=== PATIENT | male | born 1955 | race Caucasian/White ===

== ENCOUNTER 2019-02-08 08:33 | Emergency (ER) | payer BC ==
[~2019-02-08] VITALS: Ht 182.9 cm; Wt 94.4 kg
[2019-02-08 08:34] VITALS: BP 165/95
[2019-02-08] MEDS ORDERED: predniSONE 20 MG TAB PO ONE (09:30)
[2019-02-08] MEDS ORDERED: PRED20TA PO (09:30)
[2019-02-08] MEDS ORDERED: GABA-843 PO (09:30)
== END 2019-02-08 09:48 | disposition home or self-care (01) ==
LOC: M ED 08:33
DX: M54.41 Lumbago with sciatica, right side (principal); G89.29 Other chronic pain; I10 Essential (primary) hypertension; F41.9 Anxiety disorder, unspecified

== ENCOUNTER → 2019-03-07 | Outpatient (REF) | payer BC, OTHER ==
[~2019-03-07] MED LIST: GABA-843 PO; PRED20TA PO
[2019-03-07 16:52] LABS: ALBUMIN 4.5 GM/DL (3.2-5.2); ALT/SGPT 61 U/L (12-78); BLOOD UREA NITROGEN 18 MG/DL (7-18); CALCIUM LEVEL 9.2 MG/DL (8.8-10.2); CARBON DIOXIDE LEVEL 27 MEQ/L (21-32); CHLORIDE LEVEL 98 MEQ/L (98-107); CHOLESTEROL LEVEL 226 MG/DL (<200); CHOLESTEROL RISK RATIO 4.264 (<5); FERRITIN 346 NG/ML (26-388); GLOMERULAR FILTRATION RATE 59.4 (>49); GLUCOSE, FASTING 93 MG/DL (70-100); HDL CHOLESTEROL 53 MG/DL (>40); IRON (FE) 232 UG/DL (65-175); NON-HDL-C 173 MG/DL; PERCENT SATURATION 69.5 % (19.7-50.0); POTASSIUM SERUM 4.5 MEQ/L (3.5-5.1); RHEUMATOID FACTOR QUANT < 10.0 IU/ML (<15.0); SODIUM LEVEL 134 MEQ/L (136-145); THYROID STIMULATING HORMONE 0.932 uIU/ML (0.358-3.740); TOTAL IRON BINDING CAPACITY 334 UG/DL (250-450); TRIGLYCERIDES LEVEL 642 MG/DL (<150)
[2019-03-07 17:18] LABS: TOTAL 25(OH) VITAMIN D 28.4 NG/ML (30.0-100.0)
[2019-03-07 17:20] LABS: FOLATE > 24.0 NG/ML (>5.4)
[2019-03-07 17:23] LABS: HEMOGLOBIN 15.2 g/dl (13.5-17.5); MEAN CORPUSCULAR HEMOGLOBIN 34.8 pg (27.0-33.0); MEAN CORPUSCULAR HGB CONC 36.2 g/dl (32.0-36.5); MEAN CORPUSCULAR VOLUME 96.1 fl (80.0-96.0); PLATELET COUNT, AUTOMATED 149 10^3/uL (150-450); RED BLOOD COUNT 4.37 10^6/uL (4.30-6.10); WHITE BLOOD COUNT 5.9 10^3/uL (4.0-10.0)
[2019-03-07 17:29] LABS: HEPATITIS B SURFACE ANTIGEN NEGATIVE (NEGATIVE)
[2019-03-07 18:49] LABS: ERYTHROCYTE SEDIMENTATION RATE 9 mm/hr (0-20)
[2019-03-09 09:37] LABS: HEPATITIS A ANTIBODY IGM QNS (NEGATIVE); HEPATITIS B CORE ANTIBODY IGM QNS (NEGATIVE)
[2019-03-09 09:39] LABS: HEPATITIS C VIRUS ABY INDEX QNS INDEX (<0.8)
[2019-03-10 00:06] LABS: ANA (HEP2) Negative (.); Lyme Disease IgG/IgM Antibodie <0.91 ISR (0.00-0.90); Lyme Disease IgM Ab Quantitati <0.80 index (0.00-0.79)
== END ==
LOC: M SFHCCLAY 11:51
PROVIDERS: ATTEND Nurse Practitioner Family
DX: K21.9 Gastro-esophageal reflux disease without esophagitis (principal); I10 Essential (primary) hypertension; M19.90 Unspecified osteoarthritis, unspecified site; K74.60 Unspecified cirrhosis of liver; F41.9 Anxiety disorder, unspecified

== ENCOUNTER → 2019-05-01 | Outpatient (CLI) | payer BC ==
--- NOTE | 2019-05-01 09:25 | REP ---
RIGHT UPPER QUADRANT ULTRASOUND: Real-time sonographic evaluation of the right upper quadrant performed. Mobile gallstones are seen in the gallbladder. There is no gallbladder wall thickening or pericholecystic fluid. There is no intrahepatic or extrahepatic biliary dilatation, common bile duct measuring 4 mm. The liver demonstrates diffuse heterogeneous increased echotexture compatible with diffuse fibrofatty infiltration. The liver appears somewhat enlarged, with a length of approximately 18.2 cm. No gross liver or pancreatic mass is seen. Right kidney demonstrates no hydronephrosis, normal size 10.1 cm in length. IMPRESSION: Mobile gallstones in the gallbladder without gallbladder wall thickening, free fluid or biliary dilatation. Mild hepatomegaly with diffuse fibrofatty infiltration and no gross mass. Electronically Signed by Aiden Quiroga MD 05/02/2019 10:26 A
== END ==
LOC: M RAD 06:35
PROVIDERS: ATTEND Internal Medicine Gastroenterology
DX: K74.60 Unspecified cirrhosis of liver (principal); K80.20 Calculus of gallbladder without cholecystitis without obstruction

== ENCOUNTER → 2019-05-09 | Outpatient (REF) | payer BC ==
[2019-05-09 16:14] LABS: HEMATOCRIT 46.9 % (42.0-52.0); HEMOGLOBIN 15.7 g/dl (13.5-17.5); MEAN CORPUSCULAR HEMOGLOBIN 35.1 pg (27.0-33.0); MEAN CORPUSCULAR HGB CONC 33.5 g/dl (32.0-36.5); MEAN CORPUSCULAR VOLUME 104.9 fl (80.0-96.0); PLATELET COUNT, AUTOMATED 157 10^3/uL (150-450); RED BLOOD COUNT 4.47 10^6/uL (4.30-6.10); WHITE BLOOD COUNT 4.5 10^3/uL (4.0-10.0)
[2019-05-09 16:23] LABS: ALBUMIN 3.5 GM/DL (3.2-5.2); ALT/SGPT 88 U/L (12-78); BILIRUBIN,DIRECT 0.3 MG/DL (0.0-0.2); BILIRUBIN,TOTAL 1.3 MG/DL (0.2-1.0); CHOLESTEROL LEVEL 273 MG/DL (<200); CHOLESTEROL RISK RATIO 11.375 (<5); HDL CHOLESTEROL 24 MG/DL (>40); IRON (FE) 241 UG/DL (65-175); NON-HDL-C 249 MG/DL; PERCENT SATURATION 100.8 % (19.7-50.0); TOTAL IRON BINDING CAPACITY 239 UG/DL (250-450); TOTAL PROTEIN 7.4 GM/DL (6.4-8.2); TRIGLYCERIDES LEVEL 1753 MG/DL (<150)
== END ==
LOC: M SFHCCLAY 10:26
PROVIDERS: ATTEND Nurse Practitioner Family
DX: K74.60 Unspecified cirrhosis of liver (principal); E78.5 Hyperlipidemia, unspecified

== ENCOUNTER → 2019-05-16 | Outpatient (CLI) | payer OTHER ==
--- NOTE | 2019-05-16 15:12 | REP ---
Two-view chest: 05/16/2019. Indication: Dyspnea. Comparison: None. Findings: The hyperinflated lungs are clear. There is no pleural effusion or pneumothorax. The cardiomediastinal silhouette is unremarkable. Impression: No acute cardiopulmonary process. Electronically Signed by Jozef Booker DO 05/16/2019 03:03 P
== END ==
LOC: M CLY 14:47
PROVIDERS: ATTEND Nurse Practitioner Family
DX: R06.02 Shortness of breath (principal)

== ENCOUNTER → 2019-06-22 | Outpatient (REF) | payer OTHER ==
[~2019-06-22] MED LIST changes: +AMIT25TA PO; +DICL50TAB PO; +ESCI20TA PO; +HYDR25TAB PO; +LATA0.0015; +PANT40TA3 PO
[2019-06-22 12:36] LABS: HEMOGLOBIN 13.2 g/dl (13.5-17.5); MEAN CORPUSCULAR HGB CONC 33.8 g/dl (32.0-36.5); MEAN CORPUSCULAR VOLUME 103.4 fl (80.0-96.0); RED BLOOD COUNT 3.77 10^6/uL (4.30-6.10); WHITE BLOOD COUNT 3.4 10^3/uL (4.0-10.0)
[2019-06-22 12:56] LABS: PLATELET COUNT, AUTOMATED 99 10^3/uL (150-450)
[2019-06-22 13:04] LABS: ALT/SGPT 31 U/L (12-78); BILIRUBIN,DIRECT 0.1 MG/DL (0.0-0.2); BILIRUBIN,TOTAL 0.4 MG/DL (0.2-1.0); CHOLESTEROL LEVEL 270 MG/DL (<200); CHOLESTEROL RISK RATIO 5.744 (<5); FREE THYROXINE INDEX 1.8 % (1.4-3.8); HDL CHOLESTEROL 47 MG/DL (>40); IRON (FE) 65 UG/DL (65-175); NON-HDL-C 223 MG/DL; PERCENT SATURATION 20.1 % (19.7-50.0); T UPTAKE 33 % (33-40); THYROXINE (T4) 5.6 UG/DL (4.5-12.0); TOTAL IRON BINDING CAPACITY 323 UG/DL (250-450); TOTAL PROTEIN 7.4 GM/DL (6.4-8.2); TRIGLYCERIDES LEVEL 781 MG/DL (<150)
== END ==
LOC: M SFHCCLAY 08:27
PROVIDERS: ATTEND Nurse Practitioner Family
DX: K74.60 Unspecified cirrhosis of liver (principal); E78.5 Hyperlipidemia, unspecified; R53.83 Other fatigue

== ENCOUNTER → 2019-07-23 | Outpatient (REF) | payer OTHER, SELFPAY ==
[2019-07-23 16:36] LABS: HEMATOCRIT 42.2 % (42.0-52.0); HEMOGLOBIN 14.1 g/dl (13.5-17.5); MEAN CORPUSCULAR HEMOGLOBIN 34.1 pg (27.0-33.0); MEAN CORPUSCULAR HGB CONC 33.4 g/dl (32.0-36.5); MEAN CORPUSCULAR VOLUME 102.2 fl (80.0-96.0); PLATELET COUNT, AUTOMATED 109 10^3/uL (150-450); RED BLOOD COUNT 4.13 10^6/uL (4.30-6.10); WHITE BLOOD COUNT 3.4 10^3/uL (4.0-10.0)
== END ==
LOC: M SFHCCLAY 09:50
PROVIDERS: ATTEND Nurse Practitioner Family
DX: D64.9 Anemia, unspecified (principal)

== ENCOUNTER → 2019-10-08 | Outpatient (REF) | payer MEDICARE ==
[2019-10-08 11:38] LABS: BASO % 0.7 % (0.0-1.0); EOS # 0.1 10^3/uL (0.0-0.5); EOS % 4.2 % (0.0-3.0); HEMATOCRIT 39.7 % (42.0-52.0); HEMOGLOBIN 14.1 g/dl (13.5-17.5); LYMPH # 1.1 10^3/uL (1.5-5.0); LYMPH % 39.8 % (24.0-44.0); MEAN CORPUSCULAR HEMOGLOBIN 34.1 pg (27.0-33.0); MEAN CORPUSCULAR HGB CONC 35.5 g/dl (32.0-36.5); MEAN CORPUSCULAR VOLUME 95.9 fl (80.0-96.0); MONO # 0.2 10^3/uL (0.0-0.8); MONO % 8.5 % (0.0-5.0); NEUTROPHILS # 1.3 10^3/uL (1.5-8.5); NEUTROPHILS % 46.4 % (36.0-66.0); RED BLOOD COUNT 4.14 10^6/uL (4.30-6.10); WHITE BLOOD COUNT 2.8 10^3/uL (4.0-10.0)
[2019-10-08 11:39] LABS: PLATELET COUNT, AUTOMATED 90 10^3/uL (150-450)
[2019-10-08 12:09] LABS: ALBUMIN 4.1 GM/DL (3.2-5.2); ALT/SGPT 61 U/L (12-78); BILIRUBIN,TOTAL 0.7 MG/DL (0.2-1.0); BLOOD UREA NITROGEN 25 MG/DL (7-18); CALCIUM LEVEL 9.3 MG/DL (8.8-10.2); CARBON DIOXIDE LEVEL 27 MEQ/L (21-32); CHLORIDE LEVEL 99 MEQ/L (98-107); CHOLESTEROL LEVEL 248 MG/DL (<200); CHOLESTEROL RISK RATIO 7.085 (<5); CREATININE FOR GFR 1.64 MG/DL (0.70-1.30); GLOMERULAR FILTRATION RATE 45.3 (>49); GLUCOSE, FASTING 104 MG/DL (70-100); HDL CHOLESTEROL 35 MG/DL (>40); NON-HDL-C 213 MG/DL; POTASSIUM SERUM 4.7 MEQ/L (3.5-5.1); SODIUM LEVEL 133 MEQ/L (136-145); TOTAL 25(OH) VITAMIN D 14.6 NG/ML (30.0-100.0); TOTAL PROTEIN 7.8 GM/DL (6.4-8.2); TRIGLYCERIDES LEVEL 1795 MG/DL (<150)
== END ==
LOC: M SFHCCLAY 08:31
PROVIDERS: ATTEND Nurse Practitioner Family
DX: F10.20 Alcohol dependence, uncomplicated (principal); I10 Essential (primary) hypertension; E78.5 Hyperlipidemia, unspecified; E55.9 Vitamin D deficiency, unspecified

== ENCOUNTER → 2019-10-23 | Outpatient (REF) | payer MEDICARE ==
[~2019-10-23] MED LIST changes: +AMIT75TA PO; +FENO67CA2 PO; +LOSA100T50 PO; +TRIA1CR80; +VITA50005 PO
== END ==
LOC: M LAB REF 08:16
PROVIDERS: ATTEND Dermatology
DX: L57.0 Actinic keratosis (principal)

== ENCOUNTER → 2019-12-18 | Outpatient (REF) | payer MEDICARE ==
[~2019-12-18] MED LIST changes: +AMLO1TAB24 PO; +NEUR300C PO; +PANT40TA29 PO; -PANT40TA3 PO; +TRAM50TA2 PO; +XALA0.007 OU
[2019-12-18 16:56] LABS: HEMATOCRIT 38.3 % (42.0-52.0); HEMOGLOBIN 13.1 g/dl (13.5-17.5); MEAN CORPUSCULAR HEMOGLOBIN 34.4 pg (27.0-33.0); MEAN CORPUSCULAR HGB CONC 34.2 g/dl (32.0-36.5); MEAN CORPUSCULAR VOLUME 100.5 fl (80.0-96.0); RED BLOOD COUNT 3.81 10^6/uL (4.30-6.10)
[2019-12-18 17:14] LABS: ALBUMIN 4.1 GM/DL (3.2-5.2); ALT/SGPT 57 U/L (12-78); BILIRUBIN,DIRECT 0.2 MG/DL (0.0-0.2); BILIRUBIN,TOTAL 0.6 MG/DL (0.2-1.0); CHOLESTEROL LEVEL 286 MG/DL (<200); HDL CHOLESTEROL 44 MG/DL (>40); NON-HDL-C 242 MG/DL; TOTAL 25(OH) VITAMIN D 15.6 NG/ML (30.0-100.0); TOTAL PROTEIN 7.9 GM/DL (6.4-8.2); TRIGLYCERIDES LEVEL 1335 MG/DL (<150)
[2019-12-18 17:43] LABS: PLATELET COUNT, AUTOMATED 75 10^3/uL (150-450)
== END ==
LOC: M SFHCCLAY 10:46
PROVIDERS: ATTEND Nurse Practitioner Family
DX: R79.89 Other specified abnormal findings of blood chemistry (principal); E78.5 Hyperlipidemia, unspecified; E55.9 Vitamin D deficiency, unspecified

== ENCOUNTER 2020-03-03 11:01 | Inpatient (IN) | payer MEDICARE ==
[~2020-03-03] VITALS: Ht 182.9 cm; Wt 101.5 kg
[~2020-03-03 11:01] MED LIST changes: -AMLO1TAB24 PO; -NEUR300C PO; -TRAM50TA2 PO; -XALA0.007 OU
[2020-03-03 11:34] LABS: BASO % 0.2 % (0.0-1.0); EOS # 0.1 10^3/uL (0.0-0.5); HEMOGLOBIN 13.1 g/dl (13.5-17.5); LYMPH # 0.2 10^3/uL (1.5-5.0); LYMPH % 3.3 % (24.0-44.0); MEAN CORPUSCULAR HEMOGLOBIN 34.5 pg (27.0-33.0); MEAN CORPUSCULAR HGB CONC 35.4 g/dl (32.0-36.5); MEAN CORPUSCULAR VOLUME 97.4 fl (80.0-96.0); MONO # 0.3 10^3/uL (0.0-0.8); MONO % 5.3 % (0.0-5.0); NEUTROPHILS # 4.6 10^3/uL (1.5-8.5); NEUTROPHILS % 88.6 % (36.0-66.0); WHITE BLOOD COUNT 5.1 10^3/uL (4.0-10.0)
[2020-03-03 11:37] LABS: PLATELET COUNT, AUTOMATED 71 10^3/uL (150-450)
[2020-03-03] MEDS ORDERED: NEUR300C PO (11:39)
[2020-03-03] MEDS ORDERED: NS 1,000 ML IV ONE ×2 (11:45→12:30)
--- NOTE | 2020-03-03 11:48 | REPVR ---
PROCEDURE INFORMATION: Exam: CT Head Without Contrast Exam date and time: 03/03/2020 11:31 AM Age: 64 years old Clinical indication: Syncope and collapse and other: Hypotensive; Additional info: Drug overdose TECHNIQUE: Imaging protocol: Computed tomography of the head without contrast. Radiation optimization: All CT scans at this facility use at least one of these dose optimization techniques: automated exposure control; mA and/or kV adjustment per patient size (includes targeted exams where dose is matched to clinical indication); or iterative reconstruction. COMPARISON: No relevant prior studies available. FINDINGS: Brain: No acute intracranial hemorrhage, cerebral edema, or midline shift. Mild cerebral and cerebellar volume loss is present. Ventricles: No hydrocephalus. Bones/joints: No acute fracture. Paranasal sinuses: Visualized sinuses are unremarkable. No fluid levels. Mastoid air cells: Visualized mastoid air cells are well aerated. Orbits: The included orbital structures are unremarkable. Soft tissues: Unremarkable. IMPRESSION: No acute intracranial abnormality. Electronically signed by: Bob Garrett On 03/03/2020 11:48:34 AM
[2020-03-03] MEDS ORDERED: XALA0.007 OU (12:07)
[2020-03-03 12:20] LABS: ACETAMINOPHEN LEVEL < 2.0 UG/ML (10.0-30.0); ALBUMIN 3.3 GM/DL (3.2-5.2); ALT/SGPT 379 U/L (12-78); BILIRUBIN,TOTAL 2.5 MG/DL (0.2-1.0); BLOOD UREA NITROGEN 65 MG/DL (7-18); CALCIUM LEVEL 8.1 MG/DL (8.8-10.2); CARBON DIOXIDE LEVEL 21 MEQ/L (21-32); CHLORIDE LEVEL 100 MEQ/L (98-107); CK-MB VALUE MASS 2.3 NG/ML (<3.6); CPK CREATINE PHOSPHOKINASE 67 U/L (39-308); CREATININE FOR GFR 4.37 MG/DL (0.70-1.30); ETHYL ALCOHOL (ETHANOL) < 0.003 % (0.000-0.010); GLOMERULAR FILTRATION RATE 14.6 (>49); GLUCOSE, FASTING 160 MG/DL (70-100); MB/CK RELATIVE INDEX 3.43 (< OR =4); SALICYLATE LEVEL < 1.7 MG/DL (5.0-30.0); SODIUM LEVEL 130 MEQ/L (136-145); THYROID STIMULATING HORMONE 0.501 uIU/ML (0.358-3.740); TOTAL PROTEIN 6.3 GM/DL (6.4-8.2); TROPONIN I < 0.02 NG/ML (< 0.10)
[2020-03-03] MEDS ORDERED: SODIUM BICARBONATE 8.4% INJ 50 ML SYRINGE IV ONE (12:30)
[2020-03-03] MEDS ORDERED: LIDOCAINE 2% 5ML JELLY UROJET TOP ONE (12:45)
--- NOTE | 2020-03-03 12:54 | REPVR ---
PROCEDURE INFORMATION: Exam: XR Chest, 1 View Exam date and time: 03/03/2020 11:54 AM Age: 64 years old Clinical indication: Shortness of breath; Additional info: Drug overdose TECHNIQUE: Imaging protocol: XR of the chest Views: 1 view. COMPARISON: MT CHEST 2 VIEW 05/16/2019 2:53 PM FINDINGS: Lungs: Minor platelike atelectasis is noted in the lower left lung. There is no focal consolidation. Pleural space: Unremarkable. No pleural effusion. No pneumothorax. Heart/Mediastinum: Unremarkable. No cardiomegaly. Bones/joints: Unremarkable. IMPRESSION: No acute abnormality. Electronically signed by: Bob Garrett On 03/03/2020 12:54:18 PM
[2020-03-03] MEDS ORDERED: LORazepam 2 MG/ML VIAL IV PRN (13:30)
[2020-03-03 13:55] LABS: CK-MB VALUE MASS 1.7 NG/ML (<3.6); CPK CREATINE PHOSPHOKINASE 51 U/L (39-308); MB/CK RELATIVE INDEX 3.33 (< OR =4); TROPONIN I < 0.02 NG/ML (< 0.10)
[2020-03-03] MEDS ORDERED: SODIUM BICARBONATE 150 MEQ in D5W 1,000 ML IV SCH (14:00)
[2020-03-03 14:09] LABS: ALBUMIN 2.7 GM/DL (3.2-5.2); BILIRUBIN,DIRECT 1.7 MG/DL (0.0-0.2); BILIRUBIN,TOTAL 2.3 MG/DL (0.2-1.0); CALCIUM LEVEL 7.4 MG/DL (8.8-10.2); CREATININE FOR GFR 3.83 MG/DL (0.70-1.30); POTASSIUM SERUM 3.5 MEQ/L (3.5-5.1)
[2020-03-03] MEDS ORDERED: LIDOCAINE 1% MDV 20ML VIAL As Ordered ONE (14:16)
[2020-03-03] MEDS: SODIUM BICARBONATE 150 MEQ, POTASSIUM CHLORIDE INJ 40 MEQ in D5W 1,000 ML IV SCH ×2 (14:37→21:04)
--- NOTE | 2020-03-03 15:31 | REPVR ---
PROCEDURE INFORMATION: Exam: US Retroperitoneal Limited, Kidneys Exam date and time: 03/03/2020 3:24 PM Age: 64 years old Clinical indication: Condition or disease; Kidney or ureter condition; Chronic kidney disease or failure; Additional info: Renal failure TECHNIQUE: Imaging protocol: Real-time ultrasound of the retroperitoneum with image documentation. Examination was focused on the kidneys. COMPARISON: Abdomen, limited US 05/01/2019 7:20 AM FINDINGS: Limitations: The study is limited due to patient body habitus. Right kidney: The right kidney is unremarkable, measuring 9.8 cm in length. No mass, calcification, or hydronephrosis is present. Left kidney: The left kidney is unremarkable, measuring 11.5 cm in length. There is no mass, calcification, or hydronephrosis. Bladder: The bladder is decompressed around a Oneal catheter. IMPRESSION: No acute abnormality. Electronically signed by: Bob Garrett On 03/03/2020 15:31:23 PM
[2020-03-03 16:57] LABS: ALBUMIN 2.7 GM/DL (3.2-5.2); BILIRUBIN,DIRECT 1.9 MG/DL (0.0-0.2); BILIRUBIN,TOTAL 2.5 MG/DL (0.2-1.0); TOTAL PROTEIN 5.6 GM/DL (6.4-8.2)
[2020-03-03] MEDS ORDERED: THROMBIN SOLN 5,000 UNITS VIAL As Ordered ONE (17:37)
[2020-03-03 18:25] VITALS: BP 156/99
[2020-03-03 19:25] LABS: ALBUMIN 2.7 GM/DL (3.2-5.2); BILIRUBIN,DIRECT 1.9 MG/DL (0.0-0.2); BILIRUBIN,TOTAL 2.5 MG/DL (0.2-1.0); CALCIUM LEVEL 7.6 MG/DL (8.8-10.2); CREATININE FOR GFR 3.36 MG/DL (0.70-1.30); GLOMERULAR FILTRATION RATE 19.8 (>49); MAGNESIUM LEVEL 2.3 MG/DL (1.8-2.4); TOTAL PROTEIN 5.4 GM/DL (6.4-8.2)
--- NOTE | 2020-03-03 20:30 | ECGEPIP ---
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
--- NOTE | 2020-03-03 20:31 | ECGEPIP ---
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
[2020-03-03] MEDS: LATANOPROST 0.005% OPHTH SOLN 2.5 ML OU SCH (21:03)
[2020-03-04] VITALS: BP 109/58
[2020-03-04 00:39] LABS: CALCIUM LEVEL 7.4 MG/DL (8.8-10.2); CREATININE FOR GFR 2.8 MG/DL (0.70-1.30); GLOMERULAR FILTRATION RATE 24.4 (>49); MAGNESIUM LEVEL 2.1 MG/DL (1.8-2.4); POTASSIUM SERUM 3.5 MEQ/L (3.5-5.1)
[2020-03-04] MEDS: SODIUM BICARBONATE 150 MEQ, POTASSIUM CHLORIDE INJ 40 MEQ in D5W 1,000 ML IV SCH ×3 (02:32→18:36)
[2020-03-04 04:00] VITALS: BP 117/68
[2020-03-04 05:07] LABS: HEMATOCRIT 29.5 % (42.0-52.0); MEAN CORPUSCULAR HEMOGLOBIN 34.1 pg (27.0-33.0); MEAN CORPUSCULAR HGB CONC 35.6 g/dl (32.0-36.5); MEAN CORPUSCULAR VOLUME 95.8 fl (80.0-96.0); RED BLOOD COUNT 3.08 10^6/uL (4.30-6.10); WHITE BLOOD COUNT 2.6 10^3/uL (4.0-10.0)
[2020-03-04 05:09] LABS: PLATELET COUNT, AUTOMATED 48 10^3/uL (150-450)
[2020-03-04 05:10] LABS: HEMOGLOBIN 10.5 g/dl (13.5-17.5)
[2020-03-04 05:28] LABS: CALCIUM LEVEL 7.6 MG/DL (8.8-10.2); CREATININE FOR GFR 2.55 MG/DL (0.70-1.30); GLOMERULAR FILTRATION RATE 27.2 (>49); POTASSIUM SERUM 3.5 MEQ/L (3.5-5.1)
--- NOTE | 2020-03-04 06:25 | ECGEPIP ---
[facility] Test Date: 2020-03-03 Pat Name: AILYN SAXENA Department: Room: 01 Gender: Male Community Health Education Coordinator: WILEY : 1955 Requested By: ARISTEO Key Order Number: [id number] Reading MD: Bhavik Linn Measurements Intervals [place] Rate: 106 P: 38 [place]: 221 QRS: 5 QRSD: 127 T: 30 QT: 336 QTc: 447 Interpretive Statements Sinus tachycardia with first-degree AV block Right bundle branch block No significant change when compared to prior tracing of earlier this date Electronically Signed on 03-04-2020 6:25:09 EDT by Bhavik Linn
[2020-03-04 08:00] VITALS: BP 150/92
[2020-03-04 08:58] LABS: ALBUMIN 2.4 GM/DL (3.2-5.2); BILIRUBIN,DIRECT 1.5 MG/DL (0.0-0.2); BILIRUBIN,TOTAL 2.1 MG/DL (0.2-1.0); TOTAL PROTEIN 5.4 GM/DL (6.4-8.2)
[2020-03-04] MEDS ORDERED: FLUBLOK(EGG FREE)(QUAD)INFLUENZA VACC 0.5ML SYRINGE 18YRS & OLDER IM ONE (09:00)
[2020-03-04] MEDS: PANTOPRAZOLE 40MG TAB (PROTONIX) PO SCH (09:16)
[2020-03-04 12:00] VITALS: BP 142/84
--- NOTE | 2020-03-04 14:46 | IPNPDOC ---
Subjective Date Seen The patient was seen on 03/04/20. Subjective Chief Complaint/HPI Anxious this morning and crying. However on explaining whats going on and that his kidney and liver are getting better he calmed down. No dizziness or light headedness this am. No fever or chills, Objective Physical Examination General Exam: Positive: Alert, Cooperative, No Acute Distress Eye Exam: Positive: PERRLA, Conjunctiva & lids normal, EOMI; Negative: Sclera icteric ENT Exam: Positive: Atraumatic, Mucous membr. moist/pink, Pharynx Normal Neck Exam: Positive: Supple; Negative: JVD, thyromegaly Chest Exam: Positive: Clear to auscultation, Normal air movement Heart Exam: Positive: Rate Normal, Regular Rhythm, Normal S1, Normal S2; Negative: Murmurs, Rubs Telemetry: Positive: No significant arrhythmia Abdomen Exam: Positive: Normal bowel sounds, Soft; Negative: Tenderness, Hepatospenomegaly Extremity Exam: Positive: Normal pulses; Negative: Clubbing, Cyanosis, Edema Assessment /Plan Assessment Accidental Amitryptiline overdose treated with bicarb gtt. EKG no changes noted Has RBBB i suspect it is not new. Hypotension on admission probably due to the above with poor oral intake and Losartan adn HCTZ Has history of hypertension at baseline REINIER due to hypotension causing ATN on the back ground of ARB and HCTZ and chronic NSAID use improving Transaminitis possibly due to hypotension and amitriptyline on the back ground of cirrhosis of liver improving. CIRRHOSIS OF THE LIVER/ Hepatis C with chronic thrombocytopenia. GLAUCOMA latanoprost GERD PPI Anxiety will hold meds at present. counselling and talking helped. will restart escitalopram on discharge. RIGHT SCIATICA no issues at present continue gabapentin H/O ALCOHOLISM now says he drinks 3 beers a day. Actinic keratosis derm following as outpatient. Chronic back pain h/o microdiscetomy at L5 level. stop diclofenac. continue gabapentin HLD fenofibrate Plan/VTE VTE Prophylaxis Ordered?: Yes VS, I&O, 24H, Fishbone Vital Signs/I&O Vital Signs Date Time Temp Pulse Resp B/P (MAP) Pulse Ox O2 Delivery O2 Flow Rate FiO2 03/04/20 12:00 98.9 106 18 142/84 (103) 98 Room Air 03/04/20 08:00 2.0 I&O- Last 24 Hours up to 6 AM 03/04/20 06:00 Intake Total 5000 ml Output Total 3125 ml Balance 1875 ml Laboratory Data 24H LABS Laboratory Tests 2 03/03/20 15:45: Total Bilirubin 2.5H, Direct Bilirubin 1.9H, Aspartate Amino Transf (AST/SGOT) 450H, Alanine Aminotransferase (ALT/SGPT) 310H, Alkaline Phosphatase 81, Total Protein 5.6L, Albumin 2.7L, Albumin/Globulin Ratio 0.9 03/03/20 18:19: Total Bilirubin 2.5H, Direct Bilirubin 1.9H, Aspartate Amino Transf (AST/SGOT) 418H, Alanine Aminotransferase (ALT/SGPT) 303H, Alkaline Phosphatase 77, Total Protein 5.4L, Albumin 2.7L, Albumin/Globulin Ratio 1.0, Anion Gap 9, Glomerular Filtration Rate 19.8L, Calcium Level 7.6L, Whole Blood Ionized Calcium 4.0L, Magnesium Level 2.3 03/03/20 23:59: Anion Gap 7L, Glomerular Filtration Rate 24.4L, Calcium Level 7.4L, Whole Blood Ionized Calcium 4.0L, Magnesium Level 2.1 03/04/20 04:48: Total Bilirubin 2.1H, Direct Bilirubin 1.5H, Aspartate Amino Transf (AST/SGOT) 283H, Alanine Aminotransferase (ALT/SGPT) 223H, Alkaline Phosphatase 73, Total Protein 5.4L, Albumin 2.4L, Albumin/Globulin Ratio 0.8, Anion Gap 3L, Glomerular Filtration Rate 27.2L, Calcium Level 7.6L, Nucleated Red Blood Cells % (auto) 0.0 CBC/BMP Laboratory Tests 03/03/20 18:19 03/03/20 23:59 03/04/20 04:48 WALLACE MADISON MD Mar 04, 2020 14:46
[2020-03-04 16:00] VITALS: BP 136/84
[2020-03-04] MEDS ORDERED: GABAPENTIN 300 MG CAP PO PRN (18:15)
[2020-03-04] MEDS ORDERED: oxyCODONE 5MG TAB PO ONE (18:30)
[2020-03-04 20:00] VITALS: BP 159/79
--- NOTE | 2020-03-04 20:10 | ECGEPIP ---
[facility] Test Date: 2020-03-04 Pat Name: AILYN SAXENA Department: Room: [place] [address] Gender: Male Social Work Specialist: RICCI : 1955 Requested By: ARISTEO Key Order Number: [id number] Reading MD: Bhavik Linn Measurements Intervals [place] Rate: 102 P: 22 VT: 199 QRS: 3 QRSD: 126 T: 30 QT: 337 QTc: 440 Interpretive Statements Sinus tachycardia Incomplete right bundle branch block No significant change when compared to prior tracing of earlier this date Electronically Signed on 03-04-2020 20:10:10 EDT by Bhavik Linn
--- NOTE | 2020-03-04 20:15 | ECGEPIP ---
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
--- NOTE | 2020-03-04 20:25 | ECGEPIP ---
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
[2020-03-04] MEDS: LATANOPROST 0.005% OPHTH SOLN 2.5 ML OU SCH (20:40)
[2020-03-04] MEDS ORDERED: oxyCODONE 5MG TAB PO PRN (22:45)
[2020-03-05] VITALS: BP 136/69
[2020-03-05 04:00] VITALS: BP 138/69
[2020-03-05 05:36] LABS: HEMATOCRIT 29.7 % (42.0-52.0); HEMOGLOBIN 10.1 g/dl (13.5-17.5); MEAN CORPUSCULAR HEMOGLOBIN 33.1 pg (27.0-33.0); MEAN CORPUSCULAR VOLUME 97.4 fl (80.0-96.0); RED BLOOD COUNT 3.05 10^6/uL (4.30-6.10); WHITE BLOOD COUNT 2.1 10^3/uL (4.0-10.0)
[2020-03-05 05:40] LABS: PLATELET COUNT, AUTOMATED 50 10^3/uL (150-450)
[2020-03-05 05:59] LABS: ALBUMIN 2.5 GM/DL (3.2-5.2); BILIRUBIN,DIRECT 0.9 MG/DL (0.0-0.2); BILIRUBIN,TOTAL 1.3 MG/DL (0.2-1.0); CALCIUM LEVEL 8.4 MG/DL (8.8-10.2); CREATININE FOR GFR 1.67 MG/DL (0.70-1.30); GLOMERULAR FILTRATION RATE 44.3 (>49); POTASSIUM SERUM 3.7 MEQ/L (3.5-5.1); TOTAL PROTEIN 6.1 GM/DL (6.4-8.2)
[2020-03-05] MEDS ORDERED: AMLO1TAB24 PO (07:37)
[2020-03-05] MEDS ORDERED: TRAM50TA2 PO (07:37)
[2020-03-05 08:00] VITALS: BP 132/84
[2020-03-05] MEDS: PANTOPRAZOLE 40MG TAB (PROTONIX) PO SCH (08:53)
[2020-03-05] MEDS ORDERED: ESCITALOPRAM OXALATE 10 MG TAB (LEXAPRO) PO SCH (09:00)
[2020-03-05] MEDS ORDERED: FLUBLOK(EGG FREE)(QUAD)INFLUENZA VACC 0.5ML SYRINGE 18YRS & OLDER IM ONE (09:00)
--- NOTE | 2020-03-05 15:12 | DS.PDOC ---
Discharge Summary General Date of Admission Mar 03, 2020 at 12:45 Date of Discharge 03/05/20 Discharge Summary PROCEDURES PERFORMED DURING STAY: [None]. DISCHARGE DIAGNOSES: Amitriptyline accidental overdose. REINIER/ ATN Transaminitis / resolving Shock liver Hypotension Cirrhosis of liver Hepatitis C Pancytopenia due to cirrhosis/ alcohol Thrombocytopenia H/O alcohol abuse Chronic back pain Sciatica HLD COMPLICATIONS/CHIEF COMPLAINT: Accidental Amitriptyline Overdose. HOSPITAL COURSE: 64 year old male presented from opticians office when he passed out there. Patient was found to be hypotensive and was sent to ED. Patient reported that he took extra doses of amitriptilline the night before and while he was driving for his appointment he felt dizzy light headed and his driving was erratic. He the doctors office he passed out. He was admitted for amitriptilline overdose with hypotension, REINIER, transaminitis possibly shock liver Accidental Amitryptiline overdose treated with bicarb gtt as per poison cotrol. EKG no dynamic changes noted Has RBBB i suspect it is not new. Hypotension on admission probably due to the above with poor oral intake and Losartan and HCTZ Has history of hypertension at baseline REINIER due to hypotension causing ATN on the back ground of ARB and HCTZ and chronic NSAID use improving Transaminitis possibly due to hypotension and amitriptyline on the back ground of cirrhosis of liver improving. CIRRHOSIS OF THE LIVER/ Hepatis C with chronic thrombocytopenia. GLAUCOMA latanoprost GERD PPI Anxiety will hold meds at present. counselling and talking helped. will restart escitalopram on discharge. amitriptiline stopped. RIGHT SCIATICA no issues at present continue gabapentin H/O ALCOHOLISM now says he drinks 3 beers a day. advised to abstain from alcohol. Actinic keratosis derm following as outpatient. Chronic back pain h/o microdiscetomy at L5 level. stop diclofenac. continue gabapentin, tramadol prn HLD fenofibrate DISCHARGE MEDICATIONS: Please see below. ALLERGIES: Please see below. PHYSICAL EXAMINATION ON DISCHARGE: VITAL SIGNS: Please see below. General Exam: Positive: Alert, Cooperative, No Acute Distress Eye Exam: Positive: PERRLA, Conjunctiva & lids normal, EOMI; Negative: Sclera icteric ENT Exam: Positive: Atraumatic, Mucous membr. moist/pink, Pharynx Normal Neck Exam: Positive: Supple; Negative: JVD, thyromegaly Chest Exam: Positive: Clear to auscultation, Normal air movement Heart Exam: Positive: Rate Normal, Regular Rhythm, Normal S1, Normal S2; Negative: Murmurs, Rubs Telemetry: Positive: No significant arrhythmia Abdomen Exam: Positive: Normal bowel sounds, Soft; Negative: Tenderness, Hepatosplenomegaly Extremity Exam: Positive: Normal pulses; Negative: Clubbing, Cyanosis, Edema LABORATORY DATA: Please see below. ACTIVITY: [As tolerated]. DIET: regular DISPOSITION: 01 Home, Self-Care. DISCHARGE INSTRUCTIONS: PMD in 1 week ITEMS TO FOLLOWUP ON ON OUTPATIENT: CMP in 2 days DISCHARGE CONDITION: [Stable]. TIME SPENT ON DISCHARGE:35 minutes. Vital Signs/I&Os Vital Signs Date Time Temp Pulse Resp B/P (MAP) Pulse Ox O2 Delivery O2 Flow Rate FiO2 03/05/20 08:00 97.5 103 18 132/84 (100) 97 Room Air 03/04/20 12:00 2.0 I&O- Last 24 Hours up to 6 AM 03/05/20 06:00 Intake Total 3380 ml Output Total 5650 ml Balance -2270 ml Laboratory Data Labs 24H Laboratory Tests 2 03/05/20 05:03: Nucleated Red Blood Cells % (auto) 0.0, Immature Platelet Fraction 3.3, Anion Gap 5L, Glomerular Filtration Rate 44.3L, Calcium Level 8.4L, Total Bilirubin 1.3H, Direct Bilirubin 0.9H, Aspartate Amino Transf (AST/SGOT) 160H, Alanine Aminotransferase (ALT/SGPT) 164H, Alkaline Phosphatase 93, Total Protein 6.1L, Albumin 2.5L, Albumin/Globulin Ratio 0.7 CBC/BMP Laboratory Tests 03/05/20 05:03 Discharge Medications Scheduled Amlodipine Besylate (Amlodipine Besylate) 5 Mg Tablet, 5 MG PO BID Ergocalciferol (Vitamin D2) (Vitamin D2) 50,000 Units Cap, 50,000 UNIT PO 2XW, (Reported) TUESDAY/TUESDAY Escitalopram Oxalate (Escitalopram Oxalate) 20 Mg Tablet, 20 MG PO DAILY, (Reported) Fenofibrate,Micronized (Fenofibrate) 67 Mg Capsule, 67 MG PO DAILY, (Reported) Latanoprost (Xalatan) 0.005% 2.5ML Drops, 1 DROP OU QHS, (Reported) Pantoprazole Sodium (Pantoprazole Sodium) 40 Mg Tablet.dr, 40 MG PO DAILY, (Reported) Scheduled PRN Gabapentin (Neurontin) 300 Mg Capsule, 300 MG PO BID PRN for PAIN, (Reported) Tramadol HCl (Tramadol HCl) 50 Mg Tablet, 50 MG PO BIDP PRN for pain Allergies Coded Allergies: No Known Drug Allergies (Verified Allergy, Unknown, 02/08/19) WALLACE MADISON MD Mar 05, 2020 15:12
--- NOTE | 2020-03-11 15:06 | HPE ---
DATE OF ADMISSION: 03/03/2020 CHIEF COMPLAINT: I passed out. HISTORY OF PRESENT ILLNESS: This is a 64-year-old male with history of chronic sciatica on amitriptyline, has been taking 25 mg two tablets daily until a week ago when it was increased to 150 mg nightly. Patient awoke at 3 a.m. this morning, decided to take an extra tablet of amitriptyline while he was trying to urinate and had a 10 a.m. appointment with his band singer for glaucoma. Patient usually sleeps until 11 a.m. and he felt a little bit weak and tired, he passed out for a few minutes over at his ophthalmologists office and was found to have severe orthostatic hypotension with presenting blood pressure of 88/51. Patient says that he felt fuzzy before the episode. No palpitations, fever, chills, cough, shortness of breath, dysuria, urgency, frequency, chills at home. He had a similar episode about 3 weeks ago when he was having severe pain across his abdomen, decided to take extra tablets of amitriptyline, could not keep count of how many he had taken and the next day he dropped like a brick. At that time, he called 911 and he was found to have a blood pressure of 60/40. Patient was successfully resuscitated with IV fluids, but his medications have not been decreased. Patient continued to take his blood pressure medications including hydrochlorothiazide and losartan at home and diclofenac 50 twice a day. In the emergency room (ER) today, he was noted to have a creatinine of 4, blood pressure of 80, abnormal liver function tests, EKG shows a wide QRS complex. Hospitalist was called to admit for accidental drug overdose with amitriptyline due to medical noncompliance and taking medications inappropriately along with continued use of losartan and hydrochlorothiazide, despite episodes of hypotension, with his amitriptyline, as well as wide QRS requiring bicarbonate drip. PAST MEDICAL HISTORY: Sciatica, liver cirrhosis, alcohol abuse, alcoholic liver disease, glaucoma, gastroesophageal reflux, hypertension, anxiety, obesity, body mass index (BMI) of 31.2, tinnitus, insomnia, chronic alcohol dependence, allergies to LISINOPRIL causing edema, actinic keratosis. PAST SURGICAL HISTORY: Microdiscectomy L5 1997, deviated septum repair 2013. HOME MEDICATIONS: - amitriptyline 150 mg nightly - vitamin D 50,000 units twice a week - Lexapro 20 mg daily - gabapentin 300 mg twice a day for pain - hydrochlorothiazide 25 mg daily - latanoprost one drop both eyes nightly - losartan 100 mg daily - Protonix 40 mg daily - diclofenac 50 mg twice a day - fenofibrate 67 mg daily ALLERGIES: To LISINOPRIL causing edema. SOCIAL HISTORY: Patient drinks about three beers daily. Has a history of alcohol abuse, alcoholic liver cirrhosis. Lives with his girlfriend at home. FAMILY HISTORY: Father . Mother . Father had CVA. Mother with glaucoma, colon cancer, and melanoma. REVIEW OF SYSTEMS: Per history of present illness (HPI), 12-point system otherwise negative. PHYSICAL EXAMINATION: Vital signs: Temperature 97, pulse 99, respiratory rate 21, blood pressure 88/51, 99% on room air. Generally: Patient is disheveled with poor dentition, dry chapped lips, dry mucous membranes. No jugular venous distension (JVD), no thyromegaly, no cervical lymphadenopathy. Face is symmetric. He has dry erythematous scales on his face, bilateral upper and lower extremities. Tongue is midline. No respiratory distress. Anicteric, no jaundice. No use of respiratory accessory muscles, able to speak in full sentences without conversational dyspnea. Lungs: Clear to auscultation. No wheezing, rales, or rhonchi. Air entry is equal, no wheezing. Heart: S1, S2, sinus tachycardia. No murmurs, rubs, or gallops. Abdomen: Obese, soft, nontender, nondistended. Positive bowel sounds times four quadrants. No hepatosplenomegaly. No fluid wave. Extremities: No cyanosis or clubbing. Trace lower extremity edema bilaterally. EKG: Wide QRS. Repeat EKG is pending. Sinus rhythm. White count 5, hemoglobin 13, hematocrit 37, platelet count is 71, sodium 130, potassium 4, chloride 100, bicarbonate 21, BUN 65, creatinine 4.37, glucose of 160, lactic acid of 1.1, calcium of 8.1, total bilirubin 2.5, direct bilirubin 2, AST 596, ALT 379, alkaline phosphatase of 76, total CK 67, MB fraction 2.3, relative index 3.43, troponin less than 0.02, total protein 6.3, albumin of 3.3, TSH 0.501. CT of the head 03/03/2020: No acute intracranial pathology. Mild cerebellar volume loss. Chest x-ray: No acute abnormality. Renal ultrasound: No acute abnormality. Bladder decompressed Oneal catheter. ASSESSMENT AND PLAN: This is a 64-year-old male with history of chronic sciatica, hypertension on losartan/hydrochlorothiazide, chronic back pain on diclofenac, liver cirrhosis due to alcohol and history of hepatitis C, glaucoma, reflux, hypertension, tinnitus, insomnia, obesity, body mass index (BMI) of 31, medical noncompliance with his medications, presents to the emergency room with orthostatic hypotension and syncopal episode at his ophthalmologists office. IMPRESSION: 1. Orthostatic hypotension secondary to accidental amitriptyline drug overdose. 2. Accidental amitriptyline drug overdose causing wide QRS complex. 3. Abnormal EKG with wide QRS. 4. Acute kidney injury most likely due to acute tubular necrosis (ATN) with baseline creatinine of 1.3 to 1.6, current creatinine of 4.37. 5. History of hepatitis C. 6. History of alcohol abuse dependence with alcoholic liver cirrhosis. 7. Transaminitis. 8. Hypertriglyceridemia with triglyceride over 1000. PLAN: Patient, per Poison Control, should be admitted to telemetry unit, given IV bicarbonate. Seizure precautions. EKG every 1 hour. Check liver function tests, basic metabolic panel every 4 hours. Continue with bicarbonate until patients QRS is narrow. Benzodiazepine as needed as patient may have co- ingested other medications. Due to severe orthostatic hypotension, patient has been given two liters of normal saline IV bolus with resultant improvement with systolic pressure of 114 at the bedside. Patients medications will all be held due to severe hypotension, acute renal failure, and acute toxic hepatitis most likely due to drug injury at this time. Patient has no aspiration risk and may continue on a liquid diet for now. Once QRS is normal, patient may be transferred to medical/surgical telemetry and advanced on a diet if no seizure episodes. No empiric antibiotics for now. No signs of any type of aspiration. Patient has been advised that he will need to have a traffic line painter to manage his pain due to recent life-threatening wide QRS brought on by increasing doses of amitriptyline. Continue with the bicarbonate drip. Continue with eye drops, Xalatan, for now. MTDD
== END 2020-03-05 11:28 | disposition home or self-care (01) | DRG 917 ==
LOC: EDBD 11:01 → M ED 11:01 → M ED INP 12:45 → ENRESERV 12:52 → M PCU 19:18
PROVIDERS: ADMIT General Practice; ATTEND Internal Medicine Nephrology
DX: T43.011A Poisoning by tricyclic antidepressants, accidental (unintentional), initial encounter (principal); N17.0 Acute kidney failure with tubular necrosis; D61.818 Other pancytopenia; I95.9 Hypotension, unspecified; I10 Essential (primary) hypertension; R74.0 Nonspecific elevation of levels of transaminase and lactic acid dehydrogenase [LDH]; K70.30 Alcoholic cirrhosis of liver without ascites; D69.6 Thrombocytopenia, unspecified; B19.20 Unspecified viral hepatitis C without hepatic coma; H40.9 Unspecified glaucoma; K21.9 Gastro-esophageal reflux disease without esophagitis; L57.0 Actinic keratosis; E66.9 Obesity, unspecified; F41.9 Anxiety disorder, unspecified; G47.00 Insomnia, unspecified; M54.41 Lumbago with sciatica, right side; E78.5 Hyperlipidemia, unspecified; F10.20 Alcohol dependence, uncomplicated; Z79.899 Other long term (current) drug therapy; Z68.31 Body mass index [BMI] 31.0-31.9, adult

== ENCOUNTER → 2020-04-01 | Outpatient (REF) | payer MEDICARE ==
[~2020-04-01] MED LIST changes: +AMLO1TAB24 PO; +NEUR300C PO; +TRAM50TA2 PO; +XALA0.007 OU
[2020-04-01 16:18] LABS: HEMATOCRIT 37.7 % (42.0-52.0); HEMOGLOBIN 12.8 g/dl (13.5-17.5); MEAN CORPUSCULAR HEMOGLOBIN 34.6 pg (27.0-33.0); MEAN CORPUSCULAR VOLUME 101.9 fl (80.0-96.0); PLATELET COUNT, AUTOMATED 134 10^3/uL (150-450); WHITE BLOOD COUNT 5.6 10^3/uL (4.0-10.0)
[2020-04-01 16:51] LABS: ALBUMIN 3.9 GM/DL (3.2-5.2); BILIRUBIN,TOTAL 0.6 MG/DL (0.2-1.0); CALCIUM LEVEL 9.6 MG/DL (8.8-10.2); CHOLESTEROL RISK RATIO 4.826 (<5); CREATININE FOR GFR 1.34 MG/DL (0.70-1.30); GLOMERULAR FILTRATION RATE 57.1 (>49); POTASSIUM SERUM 4.6 MEQ/L (3.5-5.1)
[2020-04-01 16:59] LABS: TOTAL 25(OH) VITAMIN D 93.5 NG/ML (30.0-100.0)
== END ==
LOC: M SFHCCLAY 12:10
PROVIDERS: ATTEND Nurse Practitioner Family
DX: E78.5 Hyperlipidemia, unspecified (principal); I10 Essential (primary) hypertension; E55.9 Vitamin D deficiency, unspecified
CPT/HCPCS: 80053; 80061; 82306; 85027; G0463

== ENCOUNTER 2020-05-10 14:55 | Inpatient (IN) | payer MEDICARE ==
[~2020-05-10] VITALS: Ht 182.9 cm; Wt 109.4 kg
[2020-05-10 17:05] VITALS: BP 198/110
[2020-05-10] MEDS ORDERED: LABETALOL 100MG/20ML VIAL IV STA (17:44)
[2020-05-10] MEDS ORDERED: diazePAM 5 MG TAB PO PRN (17:45)
[2020-05-10 17:58] VITALS: BP 156/85
[2020-05-10] MEDS ORDERED: flumazeniL 0.5 MG/5 ML VIAL IV PRN (18:00)
[2020-05-10] MEDS ORDERED: DEXTROSE 50% 50 ML SYRINGE IV PRN (18:00)
[2020-05-10] MEDS ORDERED: GLUCOSE 4GM CHEW TABLET PO PRN (18:00)
[2020-05-10] MEDS ORDERED: GLUCAGON INJ 1MG VIAL SC PRN (18:00)
[2020-05-10] MEDS ORDERED: LORazepam 2 MG/ML VIAL IM PRN (18:00)
[2020-05-10] MEDS ORDERED: diazePAM 5 MG TAB PO ONE (18:00)
[2020-05-10] MEDS ORDERED: NALOXONE INJ 0.4MG/1ML VIAL (J2310 PER 1MG) IV PRN (18:00)
[2020-05-10] MEDS ORDERED: TRIC145T22 PO (18:05)
[2020-05-10] MEDS ORDERED: VITMTA PO (18:05)
[2020-05-10] MEDS ORDERED: AMIT75TA PO (18:05)
[2020-05-10] MEDS ORDERED: HYDR25TAB PO (18:05)
[2020-05-10] MEDS ORDERED: AMLO1TAB24 PO (18:05)
[2020-05-10] MEDS ORDERED: LOSA100T50 PO (18:05)
--- NOTE | 2020-05-10 18:28 | HPEPDOC ---
[facility] Medical History & Physical Date of Admission May 10, 2020 Date of Service: May 10, 2020 History and Physical CHIEF COMPLAINT: Three-day history of weakness and intractable dry heaving HISTORY OF PRESENT ILLNESS: 64-year-old male with history of alcohol abuse. Amitriptyline overdose causing wide QRS complex due to accidental overdose. Acute kidney injury with baseline creatinine of 1.3-1.6, hepatitis C, alcoholic liver cirrhosis with pancytopenia. Hypertriglyceridemia. Prior orthostatic hypotension due to amitriptyline overdose presented to [facility] emergency room with 3 day history of weakness, anorexia and dry heaving. He denies any vomiting, fever, chills, dysuria, urgency, frequency. Epigastric abdominal pain that he has chronically when he eats something, thought to be due to alcoholic gastritis with no prior history of variceal bleeding, was found to be in alcohol withdrawal with last drink yesterday. Patient usually drinks 4 beers and 3 hard liquor shots daily and has a history of heavy alcohol abuse and dependence. Patient was transferred to [facility] after evaluation in the ER at [facility] showed early pancreatitis on CT abdomen and pelvis Covid 19 was negative. Troponin was 0.03 and acute renal failure on chronic kidney disease stage III with creatinine of 3.0, and hyponatremia. Sodium of 130. 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 Patient otherwise denies any weight gain, weight loss, insomnia, fever, chills, rash, shortness of breath, chest pain, pressure, tightness, lightheadedness, dizziness, near syncope, dysphagia, upper GI bleed, hematemesis, coffee-ground emesis, bright red blood per rectum, melena, black tarry stools, polyphagia, polydipsia, facial weakness, sore throat, ear discharge, vertigo, changes in vision. PAST MEDICAL HISTORY: Orthostatic hypotension secondary to accidental amitriptyline drug overdose.Accidental amitriptyline drug overdose causing wide QRS complex. Abnormal EKG with wide QRS. Acute kidney injury most likely due to acute tubular necrosis (ATN) with baseline creatinine of 1.3 to 1.6.History of hepatitis C. History of alcohol abuse dependence with alcoholic liver cirrhosis. Transaminitis. Hypertriglyceridemia with triglyceride over 1000.Sciatica, glaucoma, gastroesophageal reflux, hypertension, anxiety, obesity, bodymass index (BMI) of 31.2, tinnitus, insomnia, actinic keratosis. PAST SURGICAL HISTORY: Microdiscectomy L5 1997, deviated septum repair 2013. HOME MEDICATIONS: See below ALLERGIES: To LISINOPRIL causing edema. SOCIAL HISTORY: Patient drinks about three beers daily four shots daily. Has a history of alcohol abuse, alcoholic liver cirrhosis. Lives with his girlfriend at home. FAMILY HISTORY: Father . Mother . Father had CVA. Mother with glaucoma, colon cancer, and melanoma. REVIEW OF SYSTEMS: Per history of present illness (HPI), 12-point system otherwise negative. PHYSICAL EXAMINATION: Vital signs: See below Generally: Obese disheveled with poor dentition, unkempt moist mucous membranes. . No jaundice. No respiratory distress . HEENT No jugular venous distension (JVD), no thyromegaly, no cervical lymphadenopathy. Face is symmetric. Tongue is midline. No respiratory distress. Anicteric, no jaundice. No use of respiratory accessory muscles Lungs: Clear to auscultation. No kyphoscoliosis No wheezing, rales, or rhonchi. Air entry is equal, no wheezing. Heart: S1, S2, sinus tachycardia. No murmurs, rubs, or gallops. Abdomen: Obese, soft, epigastric tenderness, nondistended. Positive bowel so unds times four quadrants. No hepatosplenomegaly. No fluid wave.. No rebound or guarding Extremities: No cyanosis or clubbing. Trace lower extremity edema bilaterally. LABORATORY DATA : [facility] emergency room, sodium 132, potassium 4.3, chloride 96, bicarbonate 21, BUN 43, creatinine 2.7, glucose 142, GFR 24. Urinalysis yellow color, cloudy appearance, 100 glucose, 3+ blood, 2+ protein, negative nitrate, negative leukocyte esterase, 0-2 RBCs, 0-2 WBC. Urine toxicology screen positive for THC, and TCA SARS Covid not detected. Respiratory panel negative. White count 2.8, hemoglobin 11.6, hematocrit 32.7, platelet count 11.2, eosinophils 0.4, no bands. INR 1.02. Troponin 0.03. Lactic acid 4.3, TSH 1.2 to total bilirubin 0.6, total protein 8.5, albumin 4.1, lipase 2119, magnesium 2.4. Ethyl alcohol 0.02. Acetaminophen less than 2, AST 151 ALT 66, alkaline phosphatase 111. IMAGING STUDY: [facility] CT ABDOMEN AND PELVIS. PELVIS DEMONSTRATES NORMAL BLADDER AGE-APPROPRIATE PROSTATE, SEMINAL VESICLE, NO ASCITES, NO FREE AIR, NO ADENOPATHY, ATHEROSCLEROTIC CHANGES TO THE AORTA WITHOUT ANEURYSM. MUSCULOSKELETAL STRUCTURES. HISTORY DEGENERATIVE CHANGES WITHOUT ACUTE OSSEOUS ABNORMALITY, OLD LEFT RIB FRACTURE, GALLBLADDER, BILATERAL ADRENAL AND KIDNEYS ARE NORMAL. NO EVIDENCE OF OBSTRUCTION OR ACUTE INFLAMMATORY PROCESS, NORMAL TERMINAL ILEUM AND APPENDIX IDENTIFIED IN THE RIGHT LOWER QUADRANT. FEW SCATTERED SIGMOIDAL DIVERTICULA NOTED WITHOUT ACUTE DIVERTICULITIS. HEPATOMEGALY AND HEPATIC STEATOSIS, ALONG WITH SPLENOMEGALY, VERY MILD PERIPANCREATIC INFLAMMATORY STRANDING SUGGEST POSSIBILITY OF ACUTE PANCREATITIS. CORRELATION IS RECOMMENDED. ASSESSMENT: 64-year-old male with history of alcohol abuse. Amitriptyline overdose causing wide QRS complex due to accidental overdose. Acute kidney injury with baseline creatinine of 1.3-1.6, hepatitis C, alcoholic liver cirrhosis with pancytopenia. Hypertriglyceridemia. Prior orthostatic hypotension due to amitriptyline overdose presented to [facility] emergency room with 3 day history of weakness, anorexia and dry heaving. He denies any vomiting, fever, chills, dysuria, urgency, frequency. Epigastric abdominal pain that he has chronically when he eats something, thought to be due to alcoholic gastritis with no prior history of variceal bleeding, was found to be in alcohol withdrawal with last drink yesterday. Patient usually drinks 4 beers and 3 hard liquor shots daily and has a history of heavy alcohol abuse and dependence. Patient was transferred to [facility] after evaluation in the ER at [facility] showed early pancreatitis on CT abdomen and pelvis Covid 19 was negative. Troponin was 0.03 and acute renal failure on chronic kidney disease stage III with creatinine of 3.0, and hyponatremia. Sodium of 130. Hospitalist was called to admit the patient for alcohol withdrawal and alcoholic pancreatitis in the setting of chronic alcohol dependence, alcoholic livers cirrhosis with chronic pancytopenia and chronic kidney disease stage III. Problem list: Acute alcoholic pancreatitis Alcoholic liver cirrhosis with chronic pancytopenia Acute on chronic kidney disease stage III Self-medication with amitriptyline, noncompliant Hyponatremia Polysubstance abuse with positive THC in the urine toxicology screen, alcohol dependence Alcohol abuse with dependence Splenomegaly History of hepatitis C Hypertriglyceridemia with triglyceride over 1000. Sciatica, glaucoma, gastroesophageal reflux, hypertension, uncontrolled anxiety, obesity, bodymass index (BMI) of 31.2, tinnitus, insomnia, actinic keratosis. PLAN: Patient is currently in a clear liquid diet. If worsening abdominal pain were to recur. Discontinue diet and keep nothing by mouth with IV fluids. Hypoglycemic protocol and fingersticks every 6 hourly Continue with IV fluids as needed pain medications for alcohol withdrawal. Patient will be given Valium 5 mg every 6 hourly as needed. ZROA protocol. Continuous pulse ox to prevent hypercapnic respiratory failure. IV labetalol for blood pressure control and clonidine. PPI IV. Avoid subcutaneous heparin or Lovenox in light of patient's pancytopenia. Monitor I's and O's. Oneal catheter, IV fluids for acute kidney injury and renal ultrasound. Patient is a full code. Compression stockings for DVT prophylaxis Home Medications Scheduled Amitriptyline HCl (Amitriptyline HCl) 75 Mg Tablet, 150 MG PO QHS Amlodipine Besylate (Amlodipine Besylate) 5 Mg Tablet, 5 MG PO DAILY Escitalopram Oxalate (Escitalopram Oxalate) 20 Mg Tablet, 20 MG PO DAILY Fenofibrate Nanocrystallized (Tricor) 145 Mg Tablet, 145 MG PO DAILY Hydrochlorothiazide (Hydrochlorothiazide) 25 Mg Tablet, 25 MG PO DAILY Latanoprost (Xalatan) 0.005% 2.5ML Drops, 1 DROP OU QHS Losartan Potassium (Losartan Potassium) 100 Mg Tablet, 100 MG PO DAILY Multivitamins (Thera M Plus Tablet) 1 Each Tablet, 1 TAB PO DAILY Pantoprazole Sodium (Pantoprazole Sodium) 40 Mg Tablet.dr, 40 MG PO DAILY Scheduled PRN Gabapentin (Neurontin) 300 Mg Capsule, 300 MG PO BID PRN for ARTHRITIS PAIN Allergies Coded Allergies: No Known Drug Allergies (Verified Allergy, Unknown, 02/08/19) A-FIB/CHADSVASC A-FIB History Current/History of A-Fib/PAF?: No Current PO Anticoag Therapy: No Age/Risk Factor Scoring CHADSVASC: CHADSVASC Response (Comments) Value Age Risk Factor Age < 65 years old 0 Gender Risk Factor Male 0 Hx of CHF No 0 Hx of HTN Yes 1 Hx of Stroke/TIA/or VTE No 0 Hx of Diabetes No 0 Hx of Vascular Disease No 0 Total 1 Treatment Treatment ordered: NONE ARISTEO FRIEND MD May 10, 2020 17:24
[2020-05-10] MEDS ORDERED: MULTIVITAMIN -ADULT INJECTION 10 ML, THIAMINE INJection 100 MG, FOLIC ACID 1 MG in NS 1... IV ONE (18:30)
[2020-05-10 18:54] LABS: BASO % 1.7 % (0.0-1.0); EOS % 1.7 % (0.0-3.0); HEMATOCRIT 30.3 % (42.0-52.0); HEMOGLOBIN 10.3 g/dl (13.5-17.5); LYMPH # 0.3 10^3/uL (1.5-5.0); LYMPH % 15.9 % (24.0-44.0); MEAN CORPUSCULAR HEMOGLOBIN 32.4 pg (27.0-33.0); MEAN CORPUSCULAR VOLUME 95.3 fl (80.0-96.0); MONO # 0.2 10^3/uL (0.0-0.8); MONO % 13.1 % (0.0-5.0); NEUTROPHILS # 1.2 10^3/uL (1.5-8.5); NEUTROPHILS % 65.9 % (36.0-66.0); RED BLOOD COUNT 3.18 10^6/uL (4.30-6.10); WHITE BLOOD COUNT 1.8 10^3/uL (4.0-10.0)
[2020-05-10] MEDS: cloNIDine 0.1 MG TAB PO SCH ×2 (18:59→21:15)
[2020-05-10] MEDS: PANTOPRAZOLE 40MG VIAL (C9113 PER 1) IV SCH (19:02)
--- NOTE | 2020-05-10 19:09 | REPVR ---
PROCEDURE INFORMATION: Exam: US Retroperitoneal Limited, Kidneys Exam date and time: 05/10/2020 6:53 PM Age: 64 years old Clinical indication: Other: Renal failure TECHNIQUE: Imaging protocol: Real-time ultrasound of the retroperitoneum with image documentation. Examination was focused on the kidneys. COMPARISON: RENAL US 03/03/2020 3:11 PM FINDINGS: Right kidney: The right kidney measures 11.3 cm in length by 3.6 cm in thickness and there is no hydronephrosis. Left kidney: The left kidney measures 11 cm in length by 4.9 cm in thickness and there is no evidence of hydronephrosis. Bladder: The urinary bladder is empty and cannot be evaluated. IMPRESSION: No evidence of hydronephrosis. Electronically signed by: Duane Lao On 05/10/2020 19:09:33 PM
[2020-05-10 19:10] LABS: PLATELET COUNT, AUTOMATED 48 10^3/uL (150-450)
[2020-05-10 19:19] LABS: ALBUMIN 3.6 GM/DL (3.2-5.2); BILIRUBIN,TOTAL 0.7 MG/DL (0.2-1.0); C REACTIVE PROTEIN QUANTITATIV 0.3 MG/DL (0.00-0.30); CALCIUM LEVEL 8.1 MG/DL (8.8-10.2); CK-MB VALUE MASS 8.8 NG/ML (<3.6); CREATININE FOR GFR 2.32 MG/DL (0.70-1.30); GLOMERULAR FILTRATION RATE 30.3 (>49); MB/CK RELATIVE INDEX 0.94 (< OR =4); POTASSIUM SERUM 3.9 MEQ/L (3.5-5.1); TOTAL PROTEIN 7.4 GM/DL (6.4-8.2); TROPONIN I 0.04 NG/ML (< 0.10)
[2020-05-10 19:37] LABS: ERYTHROCYTE SEDIMENTATION RATE 54 mm/hr (0-20)
[2020-05-10 20:00] VITALS: BP_SYST 164; BP_SYST 165; BP_DIAS 86
[2020-05-10] MEDS ORDERED: ACETAMINOPHEN TAB 650MG DOSE (2X325MG) PO ONE (20:00)
[2020-05-10] MEDS: LORazepam 2 MG/ML VIAL IV PRN ×2 (20:16→23:53)
[2020-05-10] MEDS ORDERED: D5W/0.45% SODIUM CHLORIDE 1,000 ML IV SCH (23:00)
[2020-05-10] MEDS: NS 1,000 ML IV SCH ×2 (23:27→23:30)
[2020-05-10] MEDS: LABETALOL 100 MG TAB PO SCH (23:53)
[2020-05-11] VITALS (7 sets, daily range): BP systolic 128–155; BP diastolic 67–86
[2020-05-11] MEDS ORDERED: D5W/0.45% SODIUM CHLORIDE 1,000 ML IV SCH
[2020-05-11] MEDS: cloNIDine 0.1 MG TAB PO SCH ×6 (01:40→22:22)
[2020-05-11] MEDS ORDERED: ACETAMINOPHEN TAB 650MG DOSE (2X325MG) PO ONE (04:00)
[2020-05-11] MEDS ORDERED: CEPACOL LOZENGE PO PRN (04:00)
[2020-05-11 04:06] LABS: BASO % 1.4 % (0.0-1.0); EOS % 2.2 % (0.0-3.0); HEMATOCRIT 27.3 % (42.0-52.0); HEMOGLOBIN 9.3 g/dl (13.5-17.5); LYMPH # 0.3 10^3/uL (1.5-5.0); LYMPH % 22.3 % (24.0-44.0); MEAN CORPUSCULAR HEMOGLOBIN 32.9 pg (27.0-33.0); MEAN CORPUSCULAR HGB CONC 34.1 g/dl (32.0-36.5); MEAN CORPUSCULAR VOLUME 96.5 fl (80.0-96.0); MONO # 0.2 10^3/uL (0.0-0.8); MONO % 10.8 % (0.0-5.0); NEUTROPHILS % 62.6 % (36.0-66.0); RED BLOOD COUNT 2.83 10^6/uL (4.30-6.10); WHITE BLOOD COUNT 1.4 10^3/uL (4.0-10.0)
[2020-05-11 04:20] LABS: NEUTROPHILS # 0.9 10^3/uL (1.5-8.5); PLATELET COUNT, AUTOMATED 31 10^3/uL (150-450)
[2020-05-11 04:29] LABS: ALBUMIN 3.2 GM/DL (3.2-5.2); BILIRUBIN,TOTAL 0.6 MG/DL (0.2-1.0); CALCIUM LEVEL 7.7 MG/DL (8.8-10.2); CREATININE FOR GFR 1.78 MG/DL (0.70-1.30); GLOMERULAR FILTRATION RATE 41.2 (>49); POTASSIUM SERUM 3.6 MEQ/L (3.5-5.1); TOTAL PROTEIN 6.6 GM/DL (6.4-8.2)
[2020-05-11] MEDS ORDERED: NS 1,000 ML IV ONE (08:00)
[2020-05-11] MEDS: METOCLOPRAMIDE INJ 10MG/2ML VIAL (J2765 PER 1) IV SCH ×4 (08:24→20:00)
[2020-05-11] MEDS: PANTOPRAZOLE 40MG VIAL (C9113 PER 1) IV SCH (08:24)
[2020-05-11] MEDS: LABETALOL 100 MG TAB PO SCH ×2 (08:25→16:51)
[2020-05-11] MEDS ORDERED: RIZATRIPTAN BENZOATE 10 MG TAB PO ONE (08:30)
--- NOTE | 2020-05-11 08:53 | IPNPDOC ---
Date Seen The patient was seen on 05/11/20. Progress Note SUBJECTIVE: c/o headache diffuse, persistent abd discomfort b/l lq no dysuria, urgency,frequency. didn't sleep much due to \ nausea w/o vomiting. no fever or chills. increased abd distension. no sob/cough OBJECTIVE: PHYSICAL EXAMINATION: Vital signs: See below Generally: Obese disheveled irritable. jello on hospital gown lying 30 degrees on bed. . HEENT No jugular venous distension (JVD), no thyromegaly, no cervical lymphadenopathy. Anicteric, no jaundice. No use of respiratory accessory muscles Lungs: Clear to auscultation. no wheezing. Heart: S1, S2, sinus tachycardia. Abdomen: Obese, soft, b/l lq tenderness, nondistended. Positive bowel sounds times four quadrants. No hepatosplenomegaly. No fluid wave. Extremities: No cyanosis or clubbing. Trace lower extremity edema bilaterally. LABORATORY DATA : see below ASSESSMENT: 64-year-old male with history of alcohol abuse. Amitriptyline overdose causing wide QRS complex due to accidental overdose. Acute kidney injury with baseline creatinine of 1.3-1.6, hepatitis C, alcoholic liver cirrhosis with pancytopenia. Hypertriglyceridemia. Prior orthostatic hypotension due to amitriptyline overdose presented to [facility] emergency room with 3 day history of weakness, anorexia and dry heaving. He denies any vomiting, fever, chills, dysuria, urgency, frequency. Epigastric abdominal pain that he has chronically when he eats something, thought to be due to alcoholic gastritis with no prior history of variceal bleeding, was found to be in alcohol withdrawal with last drink yesterday. Patient usually drinks 4 beers and 3 hard liquor shots daily and has a history of heavy alcohol abuse and dependence. Patient was transferred to [facility] after evaluation in the ER at [facility] showed early pancreatitis on CT abdomen and pelvis Covid 19 was negative. Troponin was 0.03 and acute renal failure on chronic kidney disease stage III with creatinine of 3.0, and hyponatremia. Sodium of 130. Hospitalist was called to admit the patient for alcohol withdrawal and alcoholic pancreatitis in the setting of chronic alcohol dependence, alcoholic livers cirrhosis with chronic pancytopenia and chronic kidney disease stage III. Problem list: Acute alcoholic pancreatitis Alcoholic liver cirrhosis with chronic pancytopenia Headache Acute on chronic kidney disease stage III, improved Self-medication with amitriptyline, noncompliant Hyponatremia, improved Polysubstance abuse with positive THC in the urine toxicology screen, alcohol dependence Alcohol abuse with dependence Splenomegaly History of hepatitis C Hypertriglyceridemia with triglyceride over 1000. Sciatica, glaucoma, gastroesophageal reflux, hypertension, uncontrolled anxiety, obesity, bodymass index (BMI) of 31.2, tinnitus, insomnia, actinic keratosis. PLAN: transfer to [facility]. dc tele. continue ivfluids until creatinine is normal. dc f oley once creatinine is normal. clears, but if vomiting. dc clears and keep npo. no gi bleed. no ascites needing sbp proplylaxis. no fever requiring abx coverage. reglan for h/a. ambulate tid. pt. VS, I&O, 24H, Fishbone Vital Signs/I&O Vital Signs Date Time Temp Pulse Resp B/P (MAP) Pulse Ox O2 Delivery O2 Flow Rate FiO2 05/11/20 08:25 102 129/73 05/11/20 07:32 99.2 18 95 Room Air I&O- Last 24 Hours up to 6 AM 05/11/20 06:00 Intake Total 0 ml Output Total 0 ml Balance 0 ml Laboratory Data 24H LABS Laboratory Tests 2 05/10/20 18:40: Immature Granulocyte % (Auto) 1.7, Neutrophils (%) (Auto) 65.9, Lymphocytes (%) (Auto) 15.9L, Monocytes (%) (Auto) 13.1H, Eosinophils (%) (Auto) 1.7, Basophils (%) (Auto) 1.7H, Neutrophils # (Auto) 1.2L, Lymphocytes # (Auto) 0.3L, Monocytes # (Auto) 0.2, Eosinophils # (Auto) 0.0, Basophils # (Auto) 0.0, Nucleated Red Blood Cells % (auto) 0.0, Immature Platelet Fraction 2.0, Erythrocyte Sedimentation Rate 54H, Anion Gap 10, Glomerular Filtration Rate 30.3L, Calcium Level 8.1L, Total Bilirubin 0.7, Aspartate Amino Transf (AST/SGOT) 132H, Alanine Aminotransferase (ALT/SGPT) 52, Alkaline Phosphatase 100, Total Creatine Kinase 939H, Creatine Kinase MB 8.8H, Creatine Kinase MB Relative Index 0.94, Troponin I 0.04, C-Reactive Protein, Quantitative 0.30, FX-Fgo-B-Type Natriuretic Peptide 181H, Total Protein 7.4, Albumin 3.6, Albumin/Globulin Ratio 0.9, Amylase Level 160H, Lipase 3156H 05/10/20 23:54: Bedside Glucose (Misc Panel) 115 05/11/20 03:33: Anion Gap 8, Glomerular Filtration Rate 41.2L, Calcium Level 7.7L, Total Bilirubin 0.6, Aspartate Amino Transf (AST/SGOT) 103H, Alanine Aminotransferase (ALT/SGPT) 46, Alkaline Phosphatase 87, Total Protein 6.6, Albumin 3.2, Albumin/Globulin Ratio 0.9, Lipase 1695H, Magnesium Level 2.0 05/11/20 03:34: Immature Granulocyte % (Auto) 0.7, Neutrophils (%) (Auto) 62.6, Lymphocytes (%) (Auto) 22.3L, Monocytes (%) (Auto) 10.8H, Eosinophils (%) (Auto) 2.2, Basophils (%) (Auto) 1.4H, Neutrophils # (Auto) 0.9L, Lymphocytes # (Auto) 0.3L, Monocytes # (Auto) 0.2, Eosinophils # (Auto) 0.0, Basophils # (Auto) 0.0, Nucleated Red Blood Cells % (auto) 0.0 CBC/BMP Laboratory Tests 05/10/20 18:40 05/11/20 03:33 05/11/20 03:34 ARISTEO FRIEND MD May 11, 2020 08:53
[2020-05-11] MEDS ORDERED: LORazepam 2 MG/ML VIAL IV ONE (09:00)
[2020-05-11] MEDS: LORazepam 2 MG/ML VIAL IV PRN ×2 (15:20→23:26)
[2020-05-11] MEDS ORDERED: diazePAM 5 MG TAB PO PRN (15:45)
[2020-05-11] MEDS: NS 1,000 ML IV SCH ×2 (15:51→16:51)
[2020-05-11] MEDS ORDERED: diazePAM 5 MG TAB PO SCH (16:00)
--- NOTE | 2020-05-11 16:03 | REP ---
INDICATION: fever COMPARISON: 03/03/2020 TECHNIQUE: Portable AP view of the chest FINDINGS: The mediastinum and cardiac silhouette are stable and within normal limits for portable technique. Stable chronic changes noted. A small area of linear platelike fibro atelectatic change in the left mid lung zone represents a new finding. No further consolidation, effusion, or pneumothorax. Skeletal structures are intact. IMPRESSION: New linear fibroatelectatic changes in the left mid lung zone. <Electronically signed by Jadiel Huerta > 05/11/20 0005
[2020-05-11 17:21] LABS: AMPHETAMINES LEVEL URINE NEGATIVE (NEGATIVE); BARBITURATES URINE NEGATIVE (NEGATIVE); BENZODIAZEPINES URINE POSITIVE (NEGATIVE); CANNABINOIDS URINE POSITIVE (NEGATIVE); COCAINE METABOLITE URINE NEGATIVE (NEGATIVE); METHADONE URINE NEGATIVE (NEGATIVE); OPIATES URINE NEGATIVE (NEGATIVE); PHENCYCLIDINE URINE NEGATIVE (NEGATIVE)
[2020-05-11 20:59] LABS: CLOSTRIDIUM DIFFICILE PCR NEGATIVE (NEGATIVE)
[2020-05-12] VITALS: BP 158/82
[2020-05-12] MEDS: LABETALOL 100 MG TAB PO SCH ×2 (00:11→08:38)
[2020-05-12] MEDS: METOCLOPRAMIDE INJ 10MG/2ML VIAL (J2765 PER 1) IV SCH ×3 (02:02→13:35)
[2020-05-12] MEDS: cloNIDine 0.1 MG TAB PO SCH ×3 (02:49→10:20)
[2020-05-12 04:00] VITALS: BP 141/78
[2020-05-12] MEDS ORDERED: NS 1,000 ML IV ONE (05:45)
[2020-05-12 05:50] LABS: BASO % 1.4 % (0.0-1.0); EOS # 0.1 10^3/uL (0.0-0.5); EOS % 3.5 % (0.0-3.0); HEMATOCRIT 26.6 % (42.0-52.0); HEMOGLOBIN 8.8 g/dl (13.5-17.5); LYMPH # 0.3 10^3/uL (1.5-5.0); LYMPH % 23.2 % (24.0-44.0); MEAN CORPUSCULAR HEMOGLOBIN 32.1 pg (27.0-33.0); MEAN CORPUSCULAR HGB CONC 33.1 g/dl (32.0-36.5); MEAN CORPUSCULAR VOLUME 97.1 fl (80.0-96.0); MONO # 0.1 10^3/uL (0.0-0.8); MONO % 9.9 % (0.0-5.0); NEUTROPHILS % 61.3 % (36.0-66.0); RED BLOOD COUNT 2.74 10^6/uL (4.30-6.10); WHITE BLOOD COUNT 1.4 10^3/uL (4.0-10.0)
[2020-05-12 06:25] LABS: BILIRUBIN,TOTAL 0.6 MG/DL (0.2-1.0); CALCIUM LEVEL 8.1 MG/DL (8.8-10.2); CREATININE FOR GFR 1.45 MG/DL (0.70-1.30); GLOMERULAR FILTRATION RATE 52.2 (>49); MAGNESIUM LEVEL 1.6 MG/DL (1.8-2.4); NEUTROPHILS # 0.9 10^3/uL (1.5-8.5); PLATELET COUNT, AUTOMATED 36 10^3/uL (150-450); POTASSIUM SERUM 2.9 MEQ/L (3.5-5.1); TOTAL PROTEIN 6.7 GM/DL (6.4-8.2)
--- NOTE | 2020-05-12 07:24 | ECGEPIP ---
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
[2020-05-12 08:00] VITALS: BP 188/102
[2020-05-12] MEDS: NS 1,000 ML IV ONE ×2 (08:00→08:40)
[2020-05-12] MEDS ORDERED: DEXTROSE 50% 50 ML SYRINGE IV PRN (08:00)
[2020-05-12] MEDS ORDERED: MAG SULF 1GM/100ML (MAG RUN) 1 GM in IV 1 EA IV ONE (08:00)
[2020-05-12] MEDS: PANTOPRAZOLE 40MG VIAL (C9113 PER 1) IV SCH (08:37)
[2020-05-12 08:38] LABS: INR 1.07; PROTHROMBIN TIME 14.1 SECONDS (12.5-14.3)
[2020-05-12] MEDS ORDERED: KCL 40MEQ IN D5/0.45NS 1000ML 1,000 ML IV SCH (09:00)
[2020-05-12] MEDS ORDERED: POTASSIUM CHLORIDE 10 MEQ SR TABLET PO ONE ×3 (09:00→13:00)
[2020-05-12 09:35] VITALS: BP 160/88
[2020-05-12 10:20] VITALS: BP 160/88
[2020-05-12 10:57] VITALS: BP 155/94
[2020-05-12] MEDS ORDERED: diazePAM 5 MG TAB PO SCH (12:45)
--- NOTE | 2020-05-12 12:55 | IPNPDOC ---
Date Seen The patient was seen on 05/12/20. Progress Note SUBJECTIVE: continues to have copious amount of diarrhea watery nonbloody nonmucusy 3x this am. w/o chills. b/l lq abd discomfort w/o vomiting. GI panel and cdiff pending. OBJECTIVE: PHYSICAL EXAMINATION: Vital signs: See below Generally: Obese disheveled irritable. no distress (JVD), no thyromegaly, no cervical lymphadenopathy. Anicteric, no jaundice. No use of respiratory accessory muscles Lungs: Clear to auscultation. no wheezing. Heart: S1, S2, sinus tachycardia. Abdomen: Obese, soft, b/l lq tenderness, disteneded Positive bowel sounds times four quadrants. No hepatosplenomegaly. No fluid wave. Extremities: No cyanosis or clubbing. 1+ extremity edema bilaterally. LABORATORY DATA : see below ASSESSMENT: 64-year-old male with history of alcohol abuse. Amitriptyline overdose causing wide QRS complex due to accidental overdose. Acute kidney injury with baseline c reatinine of 1.3-1.6, hepatitis C, alcoholic liver cirrhosis with pancytopenia. Hypertriglyceridemia. Prior orthostatic hypotension due to amitriptyline overdose presented to [facility] emergency room with 3 day history of weakness, anorexia and dry heaving. He denies any vomiting, fever, chills, dysuria, urgency, frequency. Epigastric abdominal pain that he has chronically when he eats something, thought to be due to alcoholic gastritis with no prior history of variceal bleeding, was found to be in alcohol withdrawal with last drink yesterday. Patient usually drinks 4 beers and 3 hard liquor shots daily and has a history of heavy alcohol abuse and dependence. Patient was transferred to [facility] after evaluation in the ER at [facility] showed early pancreatitis on CT abdomen and pelvis Covid 19 was negative. Troponin was 0.03 and acute renal failure on chronic kidney disease stage III with creatinine of 3.0, and hyponatremia. Sodium of 130. Hospitalist was called to admit the patient for alcohol withdrawal and alcoholic pancreatitis in the setting of chronic alcohol dependence, alcoholic livers cirrhosis with chronic pancytopenia and chronic kidney disease stage III. Acute alcoholic pancreatitis -npo, hypoglycemic protocol, fingersticks q6hrs until abd pain resolves. ETOH withdrawal -valium and iv ativan prn. seizure precautions. Diarrhea -Gi panel pending. no empiric abx. cdiff pending Alcoholic liver cirrhosis with chronic pancytopenia -no signs of active bleeding. may need to give platelets if need to do paracentesis -if develops ascites and fever, will need to give gram neg and anaerobic coverage, and paracentesis, but may need platelet transfusion Headache -resolved Acute on chronic kidney disease stage III - improved on ivfluids, but becoming fluid overloaded with LE edema from thirdspacing and anasarca Self-medication with amitriptyline, noncompliant -pt self-medicates often. s/p ivfluids. Hyponatremia, improved -no mental status changes Polysubstance abuse with positive THC in the urine toxicology screen, alcohol dependence -outpt rehab program Alcohol abuse with dependence -outpt etoh rehab Splenomegaly -chronic History of hepatitis C -outpt fu w GI or ID Hypertriglyceridemia with triglyceride over 1000. -recheck lipid panel in am [facility], -no c/o . may resume home meds once resumed on oral diet glaucoma, -ophtho referal as outpt gastroesophageal reflux, -chronic. iv ppi hypertension, uncontrolled -due to ETOH withdrawal. labetalol and clonidine DIET: npo. ivfluids Code: full VS, I&O, 24H, Fishbone Vital Signs/I&O Vital Signs Date Time Temp Pulse Resp B/P (MAP) Pulse Ox O2 Delivery O2 Flow Rate FiO2 05/12/20 10:57 99.3 101 20 155/94 (114) 98 Room Air I&O- Last 24 Hours up to 6 AM 05/12/20 06:00 Intake Total 5500 ml Output Total 3550 ml Balance 1950 ml Laboratory Data 24H LABS Laboratory Tests 2 05/11/20 12:59: Bedside Glucose (Misc Panel) 121H 05/11/20 15:48: Erythrocyte Sedimentation Rate 62H, Lactic Acid Level 0.9, C-Reactive Protein, Quantitative 1.95H, Procalcitonin 0.18 05/11/20 16:15: Urine Color YELLOW, Urine Appearance CLEAR, Urine pH 5.0, Urine Specific [place] 1.013, Urine Protein 1+H, Urine Glucose (UA) 1+H, Urine Ketones NEGATIVE, Urine Blood 2+H, Urine Nitrite NEGATIVE, Urine Bilirubin NEGATIVE, Urine Urobilinogen 0.2, Urine Leukocyte Esterase NEGATIVE, Urine WBC (Auto) 3, Urine RBC (Auto) 85H, Urine Hyaline Casts (Auto) 0, Urine Bacteria (Auto) NEGATIVE, Urine Squamous Epithelial Cells 0, Urine Sperm (Auto) 05/11/20 16:50: Urine Opiates Screen NEGATIVE, Urine Methadone Screen NEGATIVE, Urine Barbiturates Screen NEGATIVE, Urine Phencyclidine Screen NEGATIVE, Urine Amphetamines Screen NEGATIVE, Urine Benzodiazepines Screen POSITIVEH, Urine Coca ine Metabolite Screen NEGATIVE, Urine Cannabinoids Screen POSITIVEH 05/11/20 17:07: Bedside Glucose (Misc Panel) 107 05/11/20 19:25: Clostridium difficile [id number] PRESUMPTIVE NEGATIVE, Clostridium difficile Toxin (PCR) NEGATIVE 05/12/20 00:09: Bedside Glucose (Misc Panel) 106 05/12/20 05:23: Immature Granulocyte % (Auto) 0.7, Neutrophils (%) (Auto) 61.3, Lymphocytes (%) (Auto) 23.2L, Monocytes (%) (Auto) 9.9H, Eosinophils (%) (Auto) 3.5H, Basophils (%) (Auto) 1.4H, Neutrophils # (Auto) 0.9L, Lymphocytes # (Auto) 0.3L, Monocytes # (Auto) 0.1, Eosinophils # (Auto) 0.1, Basophils # (Auto) 0.0, Nucleated Red Blood Cells % (auto) 0.0, Immature Platelet Fraction 3.5, Anion Gap 7L, Glomerular Filtration Rate 52.2, Calcium Level 8.1L, Magnesium Level 1.6L, Total Bilirubin 0.6, Aspartate Amino Transf (AST/SGOT) 106H, Alanine Aminotransferase (ALT/SGPT) 48, Alkaline Phosphatase 83, Total Protein 6.7, Albumin 3.0L, Albumin/Globulin Ratio 0.8, Lipase 1321H 05/12/20 08:14: Prothrombin Time 14.1H, Prothromb Time International Ratio 1.07, Lactate Dehydrogenase 251H, Total Protein 6.0L 05/12/20 12:01: 05/12/20 12:20: Bedside Glucose (Misc Panel) 127H CBC/BMP Laboratory Tests 05/12/20 05:23 Microbiology Microbiology 05/11/20 Campylobacter (PCR), Received Pending 05/11/20 Clostridium difficile Toxin A&B PCR, Received Pending 05/11/20 Plesiomonas shigelloides (PCR), Received Pending 05/11/20 Salmonella (PCR)(REMIGIO), Received Pending 05/11/20 Vibrio Species (PCR), Received Pending 05/11/20 Vibrio Cholerae (PCR), Received Pending 05/11/20 Yersinia enterocolitica (PCR), Received Pending 05/11/20 Enteroaggregative E. coli (PCR), Received Pending 05/11/20 Enteropathogenic E. coli (PCR), Received Pending 05/11/20 Enterotoxigenic E. coli (PCR), Received Pending 05/11/20 E. coli Shiga-like Toxin (PCR), Received Pending 05/11/20 Escherichia coli 0157 (PCR), Received Pending 05/11/20 Enteroinvasive E. coli/Shigella PCR, Received Pending 05/11/20 Cryptosporidium (PCR), Received Pending 05/11/20 Cyclospora cayetanensis (PCR), Received Pending 05/11/20 Entamoeba histolytica (PCR), Received Pending 05/11/20 Giardia lamblia (PCR), Received Pending 05/11/20 Adenovirus Type F 40/41 (PCR), Received Pending 05/11/20 Astrovirus (PCR), Received Pending 05/11/20 Norovirus GI/GII (PCR), Received Pending 05/11/20 Rotavirus A (PCR), Received Pending 05/11/20 Sapovirus I/II/IV/V (PCR), Received Pending 05/11/20 Blood Culture, Received Pending ARISTEO FRIEND MD May 12, 2020 12:30
[2020-05-12 13:09] LABS: BLOOD UREA NITROGEN 10 MG/DL (7-18); CALCIUM LEVEL 7.5 MG/DL (8.8-10.2); CARBON DIOXIDE LEVEL 21 MEQ/L (21-32); CHLORIDE LEVEL 107 MEQ/L (98-107); CREATININE FOR GFR 1.23 MG/DL (0.70-1.30); GLOMERULAR FILTRATION RATE > 60.0 (>49); GLUCOSE, FASTING 125 MG/DL (70-100); MAGNESIUM LEVEL 1.9 MG/DL (1.8-2.4); POTASSIUM SERUM 3.6 MEQ/L (3.5-5.1); SODIUM LEVEL 135 MEQ/L (136-145)
--- NOTE | 2020-05-12 13:39 | DS.PDOC ---
Discharge Summary General Date of Admission May 10, 2020 at 17:10 Date of Discharge 05/12/20 LEFT AGAINST MEDICAL ADVICE Discharge Summary DISCHARGE DIAGNOSES: Medical Noncompliance, Left Against Medical Advice Acute alcoholic pancreatitis Alcohol Withdrawal Diarrhea due to alcohol withdrawal Alcoholic liver cirrhosis with chronic pancytopenia Headache Acute on chronic kidney disease stage III Self-medication with amitriptyline, takes extra doses at will without physician orders Hyponatremia Polysubstance abuse with positive THC in the urine toxicology screen, alcohol dependence Alcohol abuse with dependence Splenomegaly History of hepatitis C Hypertriglyceridemia with triglyceride over 1000. Sciatica, glaucoma, gastroesophageal reflux, uncontrolled HTN due to ETOH withdrawal anxiety, obesity, bodymass index (BMI) of 32.7 insomnia, DISCHARGE MEDICATIONS: see below DISCHARGE INSTRUCTIONS: Patient left against medical advice. Pt to call his primary care physician for immediate followup appt within 5 days. He is to return to the ER if he changes his mind and consents to treatment. HOSPITAL COURSE: 64-year-old male with history of alcohol abuse. Amitriptyline overdose causing wide QRS complex due to accidental overdose. Acute kidney injury with baseline creatinine of 1.3-1.6, hepatitis C, alcoholic liver cirrhosis with pancytopenia. Hypertriglyceridemia. Prior orthostatic hypotension due to amitriptyline overdose presented to [facility] emergency room with 3 day history of weakness, anorexia and dry heaving. He denies any vomiting, fever, chills, dysuria, urgency, frequency. Epigastric abdominal pain that he has chronically when he eats something, thought to be due to alcoholic gastritis with no prior history of variceal bleeding, was found to be in alcohol withdrawal with last drink yesterday. Patient usually drinks 4 beers and 3 hard liquor shots daily and has a history of heavy alcohol abuse and dependence. Patient was transferred to [facility] after evaluation in the ER at [facility] showed early pancreatitis on CT abdomen and pelvis Covid 19 was negative. Troponin was 0.03 and acute renal failure on chronic kidney disease stage III with creatinine of 3.0, and hyponatremia. Sodium of 130. Hospitalist was called to admit the patient for alcohol withdrawal and alcoholic pancreatitis in the setting of chronic alcohol dependence, alcoholic livers cirrhosis with chronic pancytopenia and chronic kidney disease stage III. Patient was kept on IV ativan PRN and valium for ETOH withdrawal, clear liquid diet, and ivfluids. Pt had worsening abd pain , and persistent nausea and dry heaving, making it difficult to continue po intake. pt was changed to npo status and hypoglycemic protocol, d51/2 ns w 40meq kcl , and fingersticks q6hrs. pt had 100.9 temp evaluated with negative cxr, ua, and blood cultures. since pt developed increasing abd distention, us abd was ordered to rule out ascites. if significant ascites, paracentesis with sbp treatment would be warranted. Pt signed out AMA, and refused further treatment. He had loose stools 3x/24hrs, gi panel and cdiff sent, but pending ondischarge. Patient left against medical advice. Pt to call his primary care physician for immediate followup appt within 5 days. He is to return to the ER if he changes his mind and consents to treatment. DISCHARGE PHYSICAL EXAMINATION: Vital signs: See below Generally: Obese disheveled irritable. jello on hospital gown lying 30 degrees on bed. . HEENT No jugular venous distension (JVD), no thyromegaly, no cervical lymphadenopathy. Anicteric, no jaundice. No use of respiratory accessory muscles Lungs: Clear to auscultation. no wheezing. Heart: S1, S2, sinus tachycardia. Abdomen: Obese, soft, b/l lq tenderness, nondistended. Positive bowel sounds times four quadrants. No hepatosplenomegaly. No fluid wave. Extremities: No cyanosis or clubbing. Trace lower extremity edema bilaterally. DISCHARGE LABORATORY DATA : see below IMAGING STUDIES: Exam: US Retroperitoneal Limited, Kidneys Exam date and time: 05/10/2020 6:53 PM Age: 64 years old Clinical indication: Other: Renal failure TECHNIQUE: Imaging protocol: Real-time ultrasound of the retroperitoneum with image documentation. Examination was focused on the kidneys. COMPARISON: RENAL US 03/03/2020 3:11 PM FINDINGS: Right kidney: The right kidney measures 11.3 cm in length by 3.6 cm in thickness and there is no hydronephrosis. Left kidney: The left kidney measures 11 cm in length by 4.9 cm in thickness and there is no evidence of hydronephrosis. Bladder: The urinary bladder is empty and cannot be evaluated. IMPRESSION: No evidence of hydronephrosis. Electronically signed by: Duane Lao On 05/10/2020 19:09:33 PM fever COMPARISON: 03/03/2020 TECHNIQUE: Portable AP view of the chest FINDINGS: The mediastinum and cardiac silhouette are stable and within normal limits for portable technique. Stable chronic changes noted. A small area of linear plat elike fibro atelectatic change in the left mid lung zone represents a new finding. No further consolidation, effusion, or pneumothorax. Skeletal structures are intact. IMPRESSION: New linear fibroatelectatic changes in the left mid lung zone. <Electronically signed by Jadiel Huerta > 05/11/20 [id number] TIME SPENT ON DISCHARGE: 30 MIN. Vital Signs/I&Os Vital Signs Date Time Temp Pulse Resp B/P (MAP) Pulse Ox O2 Delivery O2 Flow Rate FiO2 05/12/20 10:57 99.3 101 20 155/94 (114) 98 Room Air I&O- Last 24 Hours up to 6 AM 05/12/20 06:00 Intake Total 5500 ml Output Total 3550 ml Balance 1950 ml Laboratory Data Labs 24H Laboratory Tests 2 05/11/20 15:48: Erythrocyte Sedimentation Rate 62H, Lactic Acid Level 0.9, C-Reactive Protein, Quantitative 1.95H, Procalcitonin 0.18 05/11/20 16:15: Urine Color YELLOW, Urine Appearance CLEAR, Urine pH 5.0, Urine Specific [place] 1.013, Urine Protein 1+H, Urine Glucose (UA) 1+H, Urine Ketones NEGATIVE, Urine Blood 2+H, Urine Nitrite NEGATIVE, Urine Bilirubin NEGATIVE, Urine Urobilinogen 0.2, Urine Leukocyte Esterase NEGATIVE, Urine WBC (Auto) 3, Urine RBC (Auto) 85H, Urine Hyaline Casts (Auto) 0, Urine Bacteria (Auto) NEGATIVE, Urine Squamous Epithelial Cells 0, Urine Sperm (Auto) 05/11/20 16:50: Urine Opiates Screen NEGATIVE, Urine Methadone Screen NEGATIVE, Urine Barbiturates Screen NEGATIVE, Urine Phencyclidine Screen NEGATIVE, Urine Amphetamines Screen NEGATIVE, Urine Benzodiazepines Screen POSITIVEH, Urine Cocaine Metabolite Screen NEGATIVE, Urine Cannabinoids Screen POSITIVEH 05/11/20 17:07: Bedside Glucose (Misc Panel) 107 05/11/20 19:25: Clostridium difficile [id number] PRESUMPTIVE NEGATIVE, Clostridium difficile Toxin (PCR) NEGATIVE 05/12/20 00:09: Bedside Glucose (Misc Panel) 106 05/12/20 05:23: Immature Granulocyte % (Auto) 0.7, Neutrophils (%) (Auto) 61.3, Lymphocytes (%) (Auto) 23.2L, Monocytes (%) (Auto) 9.9H, Eosinophils (%) (Auto) 3.5H, Basophils (%) (Auto) 1.4H, Neutrophils # (Auto) 0.9L, Lymphocytes # (Auto) 0.3L, Monocytes # (Auto) 0.1, Eosinophils # (Auto) 0.1, Basophils # (Auto) 0.0, Nucleated Red Blood Cells % (auto) 0.0, Immature Platelet Fraction 3.5, Anion Gap 7L, Glomerular Filtration Rate 52.2, Calcium Level 8.1L, Magnesium Level 1.6L, Total Bilirubin 0.6, Aspartate Amino Transf (AST/SGOT) 106H, Alanine Aminotransferase (ALT/SGPT) 48, Alkaline Phosphatase 83, Total Protein 6.7, Albumin 3.0L, Albumin/Globulin Ratio 0.8, Lipase 1321H 05/12/20 08:14: Total Protein 6.0L, Prothrombin Time 14.1H, Prothromb Time International Ratio 1.07, Lactate Dehydrogenase 251H 05/12/20 12:01: Anion Gap 7L, Glomerular Filtration Rate > 60.0, Calcium Level 7.5L, Whole Blood Ionized Calcium 4.1L, Magnesium Level 1.9 05/12/20 12:20: Bedside Glucose (Misc Panel) 127H CBC/BMP Laboratory Tests 05/12/20 05:23 05/12/20 12:01 FSBS Laboratory Tests Test 05/11/20 17:07 05/12/20 00:09 05/12/20 12:20 Range/Units Bedside Glucose (Misc Panel) 107 106 127 80-115 MG/DL Microbiology Microbiology 05/11/20 Campylobacter (PCR), Received Pending 05/11/20 Clostridium difficile Toxin A&B PCR, Received Pending 05/11/20 Plesiomonas shigelloides (PCR), Received Pending 05/11/20 Salmonella (PCR)(REMIGIO), Received Pending 05/11/20 Vibrio Species (PCR), Received Pending 05/11/20 Vibrio Cholerae (PCR), Received Pending 05/11/20 Yersinia enterocolitica (PCR), Received Pending 05/11/20 Enteroaggregative E. coli (PCR), Received Pending 05/11/20 Enteropathogenic E. coli (PCR), Received Pending 05/11/20 Enterotoxigenic E. coli (PCR), Received Pending 05/11/20 E. coli Shiga-like Toxin (PCR), Received Pending 05/11/20 Escherichia coli 0157 (PCR), Received Pending 05/11/20 Enteroinvasive E. coli/Shigella PCR, Received Pending 05/11/20 Cryptosporidium (PCR), Received Pending 05/11/20 Cyclospora cayetanensis (PCR), Received Pending 05/11/20 Entamoeba histolytica (PCR), Received Pending 05/11/20 Giardia lamblia (PCR), Received Pending 05/11/20 Adenovirus Type F 40/41 (PCR), Received Pending 05/11/20 Astrovirus (PCR), Received Pending 05/11/20 Norovirus GI/GII (PCR), Received Pending 05/11/20 Rotavirus A (PCR), Received Pending 05/11/20 Sapovirus I/II/IV/V (PCR), Received Pending 05/11/20 Blood Culture, Received Pending Discharge Medications Scheduled Amitriptyline HCl (Amitriptyline HCl) 75 Mg Tablet, 150 MG PO QHS, (Reported) Amlodipine Besylate (Amlodipine Besylate) 5 Mg Tablet, 5 MG PO DAILY, (Reported) Escitalopram Oxalate (Escitalopram Oxalate) 20 Mg Tablet, 20 MG PO DAILY, (Reported) Fenofibrate Nanocrystallized (Tricor) 145 Mg Tablet, 145 MG PO DAILY, (Reported) Latanoprost (Xalatan) 0.005% 2.5ML Drops, 1 DROP OU QHS, (Reported) Multivitamins (Thera M Plus Tablet) 1 Each Tablet, 1 TAB PO DAILY, (Reported) Pantoprazole Sodium (Pantoprazole Sodium) 40 Mg Tablet.dr, 40 MG PO DAILY, (Reported) Scheduled PRN Gabapentin (Neurontin) 300 Mg Capsule, 300 MG PO BID PRN for ARTHRITIS PAIN, (Reported) Allergies Coded Allergies: No Known Drug Allergies (Verified Allergy, Unknown, 02/08/19) lisinopril (Verified Allergy, Unknown, UNKNOWN REACTION, 05/10/20) ARISTEO FRIEND MD May 12, 2020 13:30
[2020-05-12] MEDS ORDERED: LABETALOL 100 MG TAB PO SCH (14:00)
[2020-05-12] MEDS ORDERED: cloNIDine 0.2 MG TAB PO SCH (18:00)
== END 2020-05-12 14:06 | disposition left against medical advice (07) | DRG 439 ==
LOC: M PCU 17:10 → M MS5PR 05-12 10:42
PROVIDERS: ADMIT Internal Medicine; ATTEND Internal Medicine
DX: K85.20 Alcohol induced acute pancreatitis without necrosis or infection (principal); D61.818 Other pancytopenia; E87.1 Hypo-osmolality and hyponatremia; N17.9 Acute kidney failure, unspecified; F10.239 Alcohol dependence with withdrawal, unspecified; K70.30 Alcoholic cirrhosis of liver without ascites; N18.30 Chronic kidney disease, stage 3 unspecified; R16.1 Splenomegaly, not elsewhere classified; E78.1 Pure hyperglyceridemia; K21.9 Gastro-esophageal reflux disease without esophagitis; I12.9 Hypertensive chronic kidney disease with stage 1 through stage 4 chronic kidney disease, or unspecified chronic kidney disease; E66.9 Obesity, unspecified; Z68.31 Body mass index [BMI] 31.0-31.9, adult; G47.00 Insomnia, unspecified; L57.0 Actinic keratosis; H40.9 Unspecified glaucoma; H93.19 Tinnitus, unspecified ear; Z79.899 Other long term (current) drug therapy; R74.01 Elevation of levels of liver transaminase levels; Z91.14 Patient's other noncompliance with medication regimen; R19.7 Diarrhea, unspecified; R51.9 Headache, unspecified